=== PATIENT | female | born 1945 | race Caucasian/White ===

== ENCOUNTER 2016-03-28 09:35 | Emergency (ER) | payer OTHER ==
[~2016-03-28 09:35] MED LIST: ABILIFY5 M1 PO; ALENDRONATE SOD70 M1 PO; ALENDRONATE SOD70 M2 PO; ASPIRIN CHILDRE81 MG PO; ATIVAN 0.5MG T0.5 MG PO; ATIVAN0.5 M1 PO; ATIVAN1 M1 PO; BENZONATATE100 M1 PO; CYMBALTA 30 MG30 MG PO; CYMBALTA60 MG PO; DILAUDID8 MG PO; DOLOPHINE10 MG PO; DULOXETINE HCL60 MG PO; DULOXETINE60 MG PO; FENTANYL TR50 MCG/HR TOP; GABAPENTIN300 MG PO; GABAPENTIN400 M2 PO; GUAIFENESIN ER600 MG PO; HALOPERIDOL1 M1 PO; IBUPROFEN600 M1 PO; INDERAL 20 MG PO; INDERAL LA 60MG60 MG PO; LIDODERM 5% PAT1 PAT EXT; LISINOPRIL10 MG PO; LORAZEPAM1 MG PO; LORAZEPAM2 MG PO; MELATONIN5 M6 PO; MOBIC7.5 M1 PO; NAPROXEN500 MG PO; NOVAPLUS FE75 MCG/HR TOP; OXYCODONE HYDRO15 MG PO; PERCOCET 325 MG1 TA2 PO; PERCOCET 5-3251 EACH PO; PREMARIN0.3 M1 PO; PRINIVIL 5MG5 MG PO; PROPRANOLOL HCL20 M1 PO; PROPRANOLOL HCL20 MG PO; PROPRANOLOL HYD80 MG PO; ROXICODONE30 MG PO; TEGRETOL200 M1 PO; TRAZODONE HCL50 M1 PO; TRAZODONE100 MG PO; TYLENOL500 MG PO; ULTRAM50 M1 PO; VITAMIN B121000 MCG PO; VITAMIN D1000 IU PO; XANAX1 MG PO; ZYPREXA2.5 MG PO
[2016-03-28 10:18] LABS: ABSOLUTE BASOPHIL COUNT 0 /CUMM (0.0-0.2); ABSOLUTE EOSINOPHIL COUNT 0.2 /CUMM (0.0-0.7); ABSOLUTE GRANULOCYTE CT 2.1 /CUMM (1.4-6.5); ABSOLUTE LYMPH COUNT 1.6 /CUMM (1.2-3.4); ABSOLUTE MONOCYTE COUNT 0.6 /CUMM (0.10-0.60); BASOPHIL % 0.5 % (0.0-2.0); EOSINOPHIL % 4.4 % (0-5); GRANULOCYTE % 46.8 % (42.2-75.2); MEAN CORPUSCULAR HGB 32.8 PG (27.0-31.0); MEAN CORPUSCULAR HGB CONC 33.8 G/DL (33.0-37.0); MEAN CORPUSCULAR VOLUME 97.1 FL (81.0-99.0); MEAN PLATELET VOLUME 7.9 FL (7.4-10.4); PLATELET COUNT 199 /CUMM (130-400); RBC DISTRIBUTION WIDTH 13.6 % (11.5-14.5); RED BLOOD CELL CT 4.32 /CUMM (4.20-5.40); WHITE BLOOD CELL COUNT 4.6 /CUMM (4.8-10.8)
[2016-03-28] MEDS ORDERED: ATIVAN1 M1 PO (13:49)
--- NOTE | 2016-03-28 13:52 | ED PSYCHIATRIC COMPLAINT ---
History of Present Illness General Chief Complaint: Psychiatric Related Complaint Stated Complaint: BIBA, ANXIETY INGESTED SINGULAR, +SI, ON PEER Source: patient, old records Exam Limitations: poor historian, SEVERE ANXIETY Vital Signs & Intake/Output Vital Signs & Intake/Output Vital Signs Date Time Temp Pulse Resp B/P Pulse O2 O2 Flow FiO2 Ox Delivery Rate 03/28 1255 97.9 60 18 120/70 96 Room Air 03/28 1154 98.1 61 18 125/74 95 03/28 1101 Room Air Room Air 03/28 0944 97.2 82 22 123/71 97 Room Air Allergies Coded Allergies: codeine (Mild, GI UPSET 01/27/16) Reconcile Medications Alendronate Sodium 70 MG TABLET 1 TAB PO QWED BONES (Reported) in the morning, at least 30 minutes before the first food, beverage, or medication of the day Aripiprazole (Abilify) 5 MG TABLET 1 TAB PO QPM mental health Carbamazepine (Tegretol) 200 MG TABLET 1 TAB PO QPM mental health Cholecalciferol (Vitamin D3) 1,000 UNIT TABLET 2 TAB PO DAILY HEALTH SUPPLEMENT Duloxetine HCl 60 MG CAPSULE.DR 1 CAP PO DAILY MENTAL HEALTH (Reported) Estrogens, Conjugated (Premarin) 0.3 MG TABLET 1 TAB PO DAILY hormon maintainance (Reported) Gabapentin 300 MG CAPSULE 1 CAP PO BID NEUROPATHY (Reported) Gabapentin 400 MG CAPSULE 1 CAP PO QPM mental health Ibuprofen 600 MG TABLET 1 TAB PO Q6PRN PRN pain with food Lorazepam (Ativan) 1 MG TABLET 1 TAB PO DAILY PRN anxiety Lorazepam (Ativan) 0.5 MG TABLET 0.5 MG PO TID anxiety Melatonin 5 MG TAB.SUBL 5 MG PO AT BEDTIME sleep Meloxicam (Mobic) 7.5 MG TABLET 1 TAB PO DAILY PRN pain Naproxen 500 MG TABLET 1 TAB PO BID PAIN (Reported) Oxycodone HCl/Acetaminophen (Percocet 5-325 MG Tablet) 5 MG-325 MG TABLET 1 TAB PO Q4-6 PRN PAIN Propranolol HCl 20 MG TABLET 1 TAB PO QPM mental health Propranolol HCl 20 MG TABLET 20 MG PO BID blood pressure/tremors Tramadol HCl (Ultram) 50 MG TABLET 1-2 TAB PO Q6PRN PRN severe pain TRAZODONE HCL (Trazodone HCl) 100 MG TABLET 1 TAB PO QPM PRN SLEEP (Reported) Trazodone HCl 50 MG TABLET 1 TAB PO QPM sleep Triage Note: PER EMS AND POLICE PT ON PEC TOOK SINGULAR AND PROPANOLOL CALLED 911 2 HRS AGO + SI, PT TO TRIAGE CRYING STATES A LITTLE SI Triage Nurses Notes Reviewed? yes HPI: Patient presents for evaluation of severe and worsening anxiety that has been present for an unclear time period. Patient states she has missed the last 3 appointments at her IOP for other medical problems and was ultimately referred over to care. She has been unable to follow-up at [facility]. She has now run out of her psychiatric medications and is beginning to feel "off". She states that she's been lying down a lot and feels confused often. He states that today she took 2 Singulair tablets and other medications but does not know what they are. She spoke to a crisis hotline and was instructed to be evaluated in the emergency department. Past History Travel History Traveled to [place] past 21 day No Medical History Any Pertinent Medical History? 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 BROTHER, ; Cause: Hepatitis. Relation not specified for: Family hx-stroke FH: heart disease Hx Contributory? No Review of Systems Review of Systems Constitutional: Reports: no symptoms. EENTM: Reports: no symptoms. Respiratory: Reports: no symptoms. Cardiovascular: Reports: no symptoms. GI: Reports: no symptoms. Genitourinary: Reports: no symptoms. Musculoskeletal: Reports: no symptoms. Skin: Reports: no symptoms. Neurological/Psychological: Reports: see HPI. Hematologic/Endocrine: Reports: no symptoms. Immunologic/Allergic: Reports: no symptoms. All Other Systems: Reviewed and Negative Physical Exam Physical Exam General Appearance: SEE BELOW Neurological/Psychiatric: see below Comments: General: Alert, calm, cooperative, follows commands Head: Normocephalic, atraumatic Eyes: Normal inspection, no nystagmus, EOMI Ears: Normal inspection Nose: Normal inspection Throat: Moist mucosa Neck: Supple, no goiter Heart: Regular rate and rhythm, no murmurs rubs or gallops Lungs: Clear to auscultation bilaterally with good air entry Abdomen: Soft nontender nondistended, normal bowel sounds Chest: Nontender Extremities: Normal range of motion grossly, mild tremors present, no cyanosis clubbing or edema of the upper extremities Neurologic: cranial nerves II through XII grossly intact, speech clear, gait normal Psychiatric: Severely anxious and often tearful, No apparent delusions or hallucinations, no pressured speech or thought blocking SAD PERSONS Done? deferred to crisis Progress Differential Diagnosis: ANXIETY, BIPOLAR DISORDER Plan of Care: Orders Procedure Date/time Status Regular Diet 03/28 D Active Continuous Observation Monitor 03/28 1251 Active ED CRISIS PSYCH CONSULT 03/28 1119 Active URINE DRUGS OF ABUSE 03/28 1035 Complete ACETOMINOPHEN 03/28 0949 Complete SALICYLATE 03/28 0949 Complete ETHANOL 03/28 0949 Complete COMPREHENSIVE METABOLIC PANEL 03/28 0949 Complete CBC WITHOUT DIFFERENTIAL 03/28 0949 Complete Laboratory Tests 03/28/16 1059: Urine Opiates Screen < 100.00, Methadone Screen 42, Barbiturate Screen < 60, Ur Phencyclidine Scrn < 6.00, Amphetamines Screen < 100, U Benzodiazepines Scrn 111 , Urine Cocaine Screen < 50, Urine Cannabis Screen > 80.00 H 03/28/16 0955: Anion Gap 13, Estimated GFR > 60, BUN/Creatinine Ratio 15.7, Glucose 110 H, Calcium 9.2, Total Bilirubin 0.6, AST 104 H, ALT 76 H, Alkaline Phosphatase 93 , Total Protein 7.4, Albumin 3.4 L, Globulin 4.0, Albumin/Globulin Ratio 0.9 L , CBC w Diff NO MAN DIFF REQ, RBC 4.32, MCV 97.1, MCH 32.8 H, RDW 13.6, MPV 7.9 , Gran % 46.8, Lymphocytes % 35.9, Monocytes % 12.4 H, Eosinophils % 4.4, Basophils % 0.5, Absolute Granulocytes 2.1, Absolute Lymphocytes 1.6, Absolute Monocytes 0.6, Absolute Eosinophils 0.2, Absolute Basophils 0, PUBS MCHC 33.8, Salicylates < 1.0, Acetaminophen < 10.0 L, Serum Alcohol < 10.0 Comments: 03/28/2016 1:48:02 PM patient has been evaluated by crisis and considered stable for outpatient management. Departure Departure Disposition: HOME OR SELF CARE Condition: Stable Clinical Impression Primary Impression: Anxiety Referrals: PATIENT HAS NO PRIMARY CARE DR (PCP/Family) Additional Instructions: Follow-up with your outpatient services appointment as scheduled. Ativan as prescribed for anxiety or trouble sleeping. Follow-up with your primary care doctor as scheduled on Tuesday. Return if any concerns or sudden worsening. Departure Forms: Customer Survey General Discharge Information Prescriptions: Current Visit Scripts Lorazepam (Ativan) 1 TAB PO TID PRN anxiety #15 TAB
[2016-03-28 14:07] VITALS: BP 146/58
--- NOTE | 2016-03-28 14:08 | ED PSYCH CRISIS CONSULTATION ---
See Addendum Crisis Consult Basic Assessment Date of Consult: 03/28/16 Responsible Person/Accompanied By: Self Insurance Authorization: Insurance #1: Insurance name: [employer] Phone number: Policy number: [id number] Group number: Authorization number: ED Provider: Patient's ED Provider: MARY MARQUES MD Primary Care Physician: Patient's PCP: PATIENT HAS NO PRIMARY CARE DR PCP's Phone Number: Current Psychiatrist: Evelyn Cotton MD Chief Complaint: Psychiatric Related Complaint Anxiety Patient's Quote: "I haven't slept in days, I need help" Present Illness: Pt is a 70 year old single female who was brought by ambulance to ED, after this test director contacted 911 while pt was talking to clinician on the phone and sent the police to the pt's home. Pt called [facility] and got the [place] [employer] department who transferrd the pt to the Crisis phone. While on the phone the pt spoke to this clinician stating she was feeling "scared and anxious" because she hadn't slept in 3 days. Further, pt reported she took medications and she did not remember what she took. "I'm not sure what I took, I'm too anxious". Upon interviewing the pt in the ED, she was alert, very tearful, crying uncontrollably and yelling "I should have stayed home nobody is doing anything". "I just need to sleep" Pt was extremely agitated and verbally aggressive. Pt went on to say, she took Trazodone last night one 50mg pill at 11:30, then one 50mg pill at 12:30 and another 50mg pill at 4:30am. "It's not working, it is having the opposite effect on me, I'm not sleeping". Clinician spoke to Dr. Marques to inquire about what might be given to the pt to help her to calm done and be able to engage in a conversation and get through the interview (pt was given Ativan 1mg). Line Director interviewed the pt about an hour later and she was calm and cooperative. She stated she attended [facility] about a month ago and she missed a couple of days and was discharged from [facility]. "I would like to go back there and have interaction with people, I'm too isolated". Pt denied feeling suicidal at this time. "Yes I feel better and I want to go home and sleep". Pt then said "I feel better, I want to go home and sleep". "I just need a medication that will make me sleep". Clinician consulted with Dr. Marques & Dr. Cotton and the recommendation were as follows: Dr. Marques will give the pt a prescription for Ativan with a 5 day supply. Pt has an appointment with her PCP on 03/30/16 at 9:40am and pt was given an IOP appointment on 03/31/16 at 10:15am. Patient's Address: [address] [place] [address] Other Phone Number: Who Do You Live With? Patient/Self Family/Informants Interviewed: no family/collateral ID'd Allergies - Coded Allergies: codeine (Mild, GI UPSET 01/27/16) Current Medications - Scheduled Medications Alendronate Sodium 70 MG TABLET 1 TAB PO QWED BONES (Reported) Entered as Reported by IVIS HILL on 07/15/15 2020 Aripiprazole (Abilify) 5 MG TABLET 1 TAB PO QPM mental health #1 TAB Prescribed by MARY MARQUES MD on 02/14/16 Carbamazepine (Tegretol) 200 MG TABLET 1 TAB PO QPM mental health #1 TAB Prescribed by MARY MARQUES MD on 02/14/16 Cholecalciferol (Vitamin D3) 1,000 UNIT TABLET 2 TAB PO DAILY HEALTH SUPPLEMENT #90 Duloxetine HCl 60 MG CAPSULE. 1 CAP PO DAILY MENTAL HEALTH #14 (Reported) Entered as Reported by IVIS HILL on 07/15/152021 Estrogens, Conjugated (Premarin) 0.3 MG TABLET 1 TAB PO DAILY hormon maintainance #30 (Reported) Entered as Reported by ANGELICA PEÑALOZA on 07/02/15 0755 Gabapentin 300 MG CAPSULE 1 CAP PO BID NEUROPATHY #60 (Reported) Entered as Reported by IVIS HILL on 03/02/14 1211 Gabapentin 400 MG CAPSULE 1 CAP PO QPM mental health #1 CAP Prescribed by MARY MARQUES MD on 02/14/16 Lorazepam (Ativan) 0.5 MG TABLET 0.5 MG PO TID anxiety 28 Days Prescribed by ANGELICA PEÑALOZA on 07/03/15 Melatonin 5 MG TAB.SUBL 5 MG PO AT BEDTIME sleep 7 Days Prescribed by ANGELICA PEÑALOZA on 07/03/15 Naproxen 500 MG TABLET 1 TAB PO BID PAIN #60 (Reported) Entered as Reported by IVIS HILL on 03/02/14 1209 Propranolol HCl 20 MG TABLET 1 TAB PO QPM mental health #1 TAB Prescribed by MARY MARQUES MD on 02/14/16 Propranolol HCl 20 MG TABLET 20 MG PO BID blood pressure/tremors 28 Days Prescribed by ANGELICA PEÑALOZA on 07/03/15 Trazodone HCl 50 MG TABLET 1 TAB PO QPM sleep #1 TAB Prescribed by MARY MARQUES MD on 02/14/16 Scheduled PRN Medications Ibuprofen 600 MG TABLET 1 TAB PO Q6PRN PRN pain #50 TAB Prescribed by SHAKA TORRES MD on 01/09/16 Lorazepam (Ativan) 1 MG TABLET 1 TAB PO TID PRN anxiety #15 TAB Prescribed by MARY MARQUES MD on 03/28/16 Lorazepam (Ativan) 1 MG TABLET 1 TAB PO DAILY PRN anxiety #6 TAB Prescribed by MARY NAGY DO on 03/06/16 Meloxicam (Mobic) 7.5 MG TABLET 1 TAB PO DAILY PRN pain #10 TAB Prescribed by MARY NAGY DO on 03/06/16 Oxycodone HCl/Acetaminophen (Percocet 5-325 MG Tablet) 5 MG-325 MG TABLET 1 TAB PO Q4-6 PRN PAIN #2 TAB Prescribed by NAFISA ROUSSEAU MD on 01/24/16 Tramadol HCl (Ultram) 50 MG TABLET 1-2 TAB PO Q6PRN PRN severe pain #30 TAB Prescribed by SHAKA TORRES MD on 01/09/16 TRAZODONE HCL (Trazodone HCl) 100 MG TABLET 1 TAB PO QPM PRN SLEEP #30 ( Reported) Entered as Reported by IVIS HILL on 03/02/14 1209 Laboratory Results: Laboratory Tests 03/28/16 1059: Urine Opiates Screen < 100.00, Methadone Screen 42, Barbiturate Screen < 60, Ur Phencyclidine Scrn < 6.00, Amphetamines Screen < 100, U Benzodiazepines Scrn 111 , Urine Cocaine Screen < 50, Urine Cannabis Screen > 80.00 H 03/28/16 0955: Anion Gap 13, Estimated GFR > 60, BUN/Creatinine Ratio 15.7, Glucose 110 H, Calcium 9.2, Total Bilirubin 0.6, AST 104 H, ALT 76 H, Alkaline Phosphatase 93 , Total Protein 7.4, Albumin 3.4 L, Globulin 4.0, Albumin/Globulin Ratio 0.9 L , CBC w Diff NO MAN DIFF REQ, RBC 4.32, MCV 97.1, MCH 32.8 H, RDW 13.6, MPV 7.9 , Gran % 46.8, Lymphocytes % 35.9, Monocytes % 12.4 H, Eosinophils % 4.4, Basophils % 0.5, Absolute Granulocytes 2.1, Absolute Lymphocytes 1.6, Absolute Monocytes 0.6, Absolute Eosinophils 0.2, Absolute Basophils 0, PUBS MCHC 33.8, Salicylates < 1.0, Acetaminophen < 10.0 L, Serum Alcohol < 10.0 Past History Past Medical History Neurological: NONE EENT: NONE Cardiovascular: CAD, hypertension, hyperlipidemia, myocardial infarction ( possible old M.I.(on EKG)) Respiratory: NONE Gastrointestinal: NONE Hepatic: HEP C--hasn't been rx'd Renal: NONE Musculoskeletal: chronic back pain Psychiatric: anxiety, bipolar disease (R/O bipolar spectrum disorder), chronic pain disorder (with prominent mixed/irritable), depression (symptoms and rage outbursts), SUICIDAL IDEATION Endocrine: THYROID,PARATHYROID SURGE Blood Disorders: NONE Cancer(s): NONE 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 Physical Limitations (Interventions): Back pain, uses cane/ walker Psychiatric Treatment History Psych Treatment Psychiatric Treatment Yes Inpatient Treatment Yes Outpatient Treatment No Location of Treatment [facility] Reason for Treatment Depression Dates of Treatment July & December 2015 Response to Treatment Pt referred to [facility] but was discharged early. Diagnosis by History: Depression, Anxiety Substance Use/Abuse History Drug Use/Abuse Substances Used/Abused Yes Substance Used/Abused Marijuana First Use Unknown Last Used 03/27/16 How much used/taken unknown How often Ocassionally For how long unknown Route of use smoke Substance Abuse Treatment Substance Abuse Treatment Past Substance Abuse [place] No Inpatient Treatment No Outpatient Treatment Yes Location of Treatment [place] Reason for Treatment Dual Diagnosis Dates of Treatment 01/06/16 Response to Treatment Pt discharge from [facility] for poor attendance. Current Mental Status Mental Status Orientation: Person, Place, Situation Affect: Anxious, Angry, Depressed, Sad Speech: Hyper-verbal Neuro-vegetative: Concentration Poor, Energy Decreased, Sleep Disturbance (No sleep 3 days) Appearance Appearance- Dress/Hygiene: Pt not groomed, disheveled appearance Behaviors Thought Process: Disorganized Thought Content: Somatic Memory: Impaired Insight: Poor SI/HI Risk Assessment Past Suicidal Ideation/Attempts Yes Current Suicidal Ideation/Att No Past Homicidal Ideation/Att: No Current Homicidal Ideation/Attempts No Degree of Intent: None Danger To: N/A Gravely Disabled: Poor Judgment Risk Factors: age (under 24/over 65), high anxiety/distress, history of suicide atmpts, SA/MH hospitalized, substance abuse, poor impulse control, lives alone, limited support Lethality Ratin (mild) PTSD Checklist PTSD Done? patient declined ED Management Sitter: Yes Restraints: No DSM5/PS Stressors/Medical Prob Diagnosis' (DSM 5, Stressors, Medical): F32.9 Depressive Disorder Unspecified, F15.20 Cannibis Use Disorder Moderate, Opioid Use Disorder; in sustained full remission, Medical Condition Hypertension , Hyperlipidemia, Chronic back pain Current GAF: 35 Departure Disposition Psych Medical Clearance Date: 03/28/16 Medically Cleared at: 1119 Time Started: 1141 Time Ended: 1230 Psychiatrist Consulted: Evelyn Cotton MD Date Disposition Established: 03/28/16 Time Disposition Established: 1240 Plan for Disposition - Modality: IOP Facility: [facility] Follow-up Appt Date: 03/31/16 Follow-Up Appt Time: 1015 Contact: [facility] Telephone: [phone] Rationale for Disposition: Pt denied SI/HI and no evidence of psychosis Pt became very calm after she was treated with Ativan 1mg in the ED. Pt was given a script for PRN Ativan with follow up appointment for IOP on 03/31/16 at 10:15am and PCP appointment on 03/30/16 at 9:40am. Referrals PATIENT HAS NO PRIMARY CARE DR (PCP/Family)
== END 2016-03-28 14:24 ==
LOC: ERH 09:35
PROVIDERS: Emergency Medicine
DX: F41.9 Anxiety disorder, unspecified (principal)
CPT/HCPCS: 80307; G0480

== ENCOUNTER 2016-04-11 07:20 | Emergency (ER) | payer OTHER ==
[~2016-04-11] VITALS: Ht 157.5 cm; Wt 79.4 kg
--- NOTE | 2016-04-11 08:47 | ED PSYCHIATRIC COMPLAINT ---
History of Present Illness General Chief Complaint: Psychiatric Related Complaint Stated Complaint: ANXIETY Source: patient, old records, EMS Exam Limitations: no limitations Vital Signs & Intake/Output Vital Signs & Intake/Output Vital Signs Date Time Temp Pulse Resp B/P Pulse O2 O2 Flow FiO2 Ox Delivery Rate 04/11 0809 98 Room Air 04/11 0727 96.9 84 18 142/92 95 Room Air Allergies Coded Allergies: codeine (Mild, GI UPSET 01/27/16) Reconcile Medications Alendronate Sodium 70 MG TABLET 1 TAB PO QWED BONES (Reported) in the morning, at least 30 minutes before the first food, beverage, or medication of the day Aripiprazole (Abilify) 5 MG TABLET 1 TAB PO QPM mental health Carbamazepine (Tegretol) 200 MG TABLET 1 TAB PO QPM mental health Cholecalciferol (Vitamin D3) 1,000 UNIT TABLET 2 TAB PO DAILY HEALTH SUPPLEMENT Duloxetine HCl 60 MG CAPSULE.DR 1 CAP PO DAILY MENTAL HEALTH (Reported) Estrogens, Conjugated (Premarin) 0.3 MG TABLET 1 TAB PO DAILY hormon maintainance (Reported) Gabapentin 300 MG CAPSULE 1 CAP PO BID NEUROPATHY (Reported) Gabapentin 400 MG CAPSULE 1 CAP PO QPM mental health Ibuprofen 600 MG TABLET 1 TAB PO Q6PRN PRN pain with food Lorazepam (Ativan) 1 MG TABLET 1 TAB PO TID PRN anxiety Lorazepam (Ativan) 1 MG TABLET 1 TAB PO DAILY PRN anxiety Lorazepam (Ativan) 0.5 MG TABLET 0.5 MG PO TID anxiety Melatonin 5 MG TAB.SUBL 5 MG PO AT BEDTIME sleep Meloxicam (Mobic) 7.5 MG TABLET 1 TAB PO DAILY PRN pain Naproxen 500 MG TABLET 1 TAB PO BID PAIN (Reported) Oxycodone HCl/Acetaminophen (Percocet 5-325 MG Tablet) 5 MG-325 MG TABLET 1 TAB PO Q4-6 PRN PAIN Propranolol HCl 20 MG TABLET 1 TAB PO QPM mental health Propranolol HCl 20 MG TABLET 20 MG PO BID blood pressure/tremors Tramadol HCl (Ultram) 50 MG TABLET 1-2 TAB PO Q6PRN PRN severe pain TRAZODONE HCL (Trazodone HCl) 100 MG TABLET 1 TAB PO QPM PRN SLEEP (Reported) Trazodone HCl 50 MG TABLET 1 TAB PO QPM sleep Triage Note: 70 YO FEMALE BIBA FROM HOME. PT STATES SHE HAS A HISTORY OF DEPRESSION AND ANXIETY AND THEY RECENTLY CHANGED SOME OF HER MEDICATIONS AND SHE HASNT BEEN ABLE TO SLEEP OR EAT. PT STATES SHE WAS PERSCRIPED LORAZAPAM BUT HER DR ONLY GAVE HER 6 PILLS AND IT WAS WORKING BUT SHE HAS NO MORE. Triage Nurses Notes Reviewed? yes Onset: Morning Duration: day(s):, continues in ED, waxing and waning Timing: recent history Severity: severe Associated Symptoms: anxiety, impaired concentration, insomnia LMP (ages 10-50): post menopausal : No Patient currently breastfeeds: No HPI: Several days prior to admission patient complains of increasing anxiety. Yesterday anxiety became worse when her aid left associated with insomnia anorexia and fatigue. She denies fever chills nausea vomiting diarrhea abdominal pain chest pain shortness breath headache dysuria rash bleeding suicidal ideation homicidal ideation hallucination Past History Travel History Traveled to [place] past 21 day No Medical History Any Pertinent Medical History? 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 BROTHER, ; Cause: Hepatitis. Relation not specified for: Family hx-stroke FH: heart disease Hx Contributory? No Review of Systems Review of Systems Constitutional: Reports: no symptoms. EENTM: Reports: no symptoms. Respiratory: Reports: no symptoms. Cardiovascular: Reports: no symptoms. GI: Reports: no symptoms. Genitourinary: Reports: no symptoms. Musculoskeletal: Reports: no symptoms. Skin: Reports: no symptoms. Neurological/Psychological: Reports: see HPI, anxiety, confusion. Hematologic/Endocrine: Reports: no symptoms. Immunologic/Allergic: Reports: no symptoms. All Other Systems: Reviewed and Negative Physical Exam Physical Exam General Appearance: well developed/nourished, alert, awake, anxious, moderate distress Head: atraumatic, normal appearance Eyes: Bilateral: PERRL, EOMI. Ears, Nose, Throat: normal pharynx, normal ENT inspection, hearing grossly normal Neck: normal inspection, supple Respiratory: normal breath sounds Cardiovascular: regular rate/rhythm Gastrointestinal: soft, non-tender Extremities: normal range of motion Neurological/Psychiatric: no motor/sensory deficits, awake, agitated, alert, anxious, conference concierge II-XII nml as tested, oriented x 3 Appearance/Memory/Insight: disheveled, impaired insight Behavoir/Eye Contact/Speech: cooperative, normal speech Thoughts/Hallucinations: no apparent hallucination Skin: intact, normal color, warm/dry SAD PERSONS Done? patient not suicidal Progress Differential Diagnosis: drug intoxication, drug overdose, drug withdrawal, electrolyte abnormality, hypoglycemia Plan of Care: Orders Procedure Date/time Status URINE DRUG SCREEN FOR ER ONLY 04/11 744 Complete Current Medications Sig/Lena Start time Last Medication Dose Stop Time Status Admin Aripiprazole 5 MG ONCE ONE 04/11 914 AC (Abilify) 04/11 915 Carbamazepine 200 MG ONCE ONE 04/11 914 AC (Tegretol) 04/11 915 Laboratory Tests 04/11/16 0745: Urine Opiates Screen < 100.00, Methadone Screen < 40, Barbiturate Screen < 60, Ur Phencyclidine Scrn < 6.00, Amphetamines Screen < 100, U Benzodiazepines Scrn < 85, Urine Cocaine Screen < 50, Urine Cannabis Screen 78.90 H Comments: Patient declines restarting abilify and tegretol. Requests more ativan. Declines crisis evaluation at this time. Prefers to go home and try to relax. Departure Departure Time of Disposition: 905 Disposition: HOME OR SELF CARE Condition: Stable Clinical Impression Primary Impression: Generalized anxiety disorder Referrals: PATIENT HAS NO PRIMARY CARE DR (PCP/Family) Departure Forms: General Discharge Information
[2016-04-11 09:19] VITALS: BP 132/88
== END 2016-04-11 09:20 ==
LOC: ERH 07:20
DX: F41.1 Generalized anxiety disorder (principal)
CPT/HCPCS: 80307

== ENCOUNTER 2017-08-05 10:43 | Emergency (ER) | payer OTHER ==
[~2017-08-05] VITALS: Ht 157.5 cm; Wt 68.0 kg
[~2017-08-05 10:43] MED LIST changes: +AMLODIPINE BESYL5 M1 PO; +BUSPIRONE HCL10 M1 PO; +BUSPIRONE HCL7.5 M1 PO; +DULOXETINE HCL30 MG PO; +HYDROXYZINE HCL25 M2 PO; +HYDROXYZINE HCL50 M1 PO; +OMEPRAZOLE40 M1 PO; +OXYCODONE HCL10 M2 PO; +TRAMADOL HCL50 M1 PO; +TRAZODONE HCL100 M1 PO; +ZOFRAN ODT4 M1 SL
[2017-08-05 10:51] VITALS: BP 154/94
[2017-08-05] MEDS ORDERED: PERCOCET 5-3251 EACH PO (11:19)
[2017-08-05] MEDS ORDERED: CYMBALTA30 M1 PO (11:19)
--- NOTE | 2017-08-05 11:20 | ED GENERAL ADULT ---
History of Present Illness General Chief Complaint: General Adult Stated Complaint: WEAKNESS/OUT OF MEDS Source: patient, old records Exam Limitations: no limitations Vital Signs & Intake/Output Vital Signs & Intake/Output Vital Signs Date Time Temp Pulse Resp B/P B/P Pulse O2 O2 Flow FiO2 Mean Ox Delivery Rate 08/05 1128 Room Air Room Air 08/05 1051 98.4 106 18 154/94 98 Room Air Allergies Coded Allergies: No Known Drug Allergies (UNKNOWN 11/08/16) codeine (Mild, GI UPSET 01/27/16) Reconcile Medications Alendronate Sodium 70 MG TABLET 1 TAB PO QWED BONES (Reported) in the morning, at least 30 minutes before the first food, beverage, or medication of the day Amlodipine Besylate 5 MG TABLET 5 MG PO DAILY blood pressure management Buspirone HCl 10 MG TABLET 10 MG PO 0800,1400,2200 anxiety Duloxetine HCl 30 MG CAPSULE.DR 2 CAP PO DAILY UNKNOWN (Reported) Duloxetine Hydrochloride (Cymbalta) 30 MG CAPSULE.DR 3 CAP PO DAILY DEPRESSION Omeprazole 40 MG CAPSULE.DR 1 CAP PO DAILY GI (Reported) Oxycodone HCl/Acetaminophen (Percocet 5-325 MG Tablet) 5 MG-325 MG TABLET 1-2 TAB PO Q6P PRN PAIN Propranolol HCl 20 MG TABLET 20 MG PO 0800,1400,2200 tremors/blood pressure Trazodone HCl 100 MG TABLET 100 MG PO AT BEDTIME sleep induction Triage Note: 71 YO FEMALE TO TRIAGE BY AMBULANCE FOR MED REFILL OF CYMBALTA. REPORTS SHE HAS BEEN OUT FOR 5 DAYS, REPORTS SHE IS IN THE PROCESS OF GETTING A NEW DR. ALSO C/O PAIN TO GROIN. Triage Nurses Notes Reviewed? yes HPI: Patient ran out of her Cymbalta 4 days ago. Patient denies any suicidal or homicidal ideations. Patient's therapist is attempting to get her into see a new doctor. Patient is also in between pain management doctors. Patient has diffuse achy body pain. This is not new for her. She states that the pain is currently 8 out of 10. Patient denies any hallucinations. There are no aggravating or mitigating factors to the pain. Past History Travel History Traveled to [place] past 21 day No Medical History Any Pertinent Medical History? see below for history Neurological: CVA (with L-sided paraparesis), delerium (in 2005--too much opioid rx), dizziness (in past on Tegretol, 3-400mg), R/O shaking/tremulousness on idiopathic basis EENT: NONE Cardiovascular: CAD, hypertension, hyperlipidemia, myocardial infarction ( possible old M.I.(on EKG)) Respiratory: NONE, hx of aspirations during drug excess and/or OD Gastrointestinal: NONE Renal: NONE Musculoskeletal: chronic back pain Psychiatric: anxiety, bipolar disease (R/O bipolar spectrum disorder), depression, IV drug abuse (remote hx heroin abuse), opioid dependence, SUICIDAL IDEATION benzo. 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 BROTHER, ; Cause: Hepatitis. Relation not specified for: Family hx-stroke FH: heart disease Hx Contributory? No Review of Systems Review of Systems Constitutional: Reports: no symptoms. EENTM: Reports: no symptoms. Respiratory: Reports: no symptoms. Cardiovascular: Reports: no symptoms. GI: Reports: no symptoms. Genitourinary: Reports: no symptoms. Musculoskeletal: Reports: see HPI. Skin: Reports: no symptoms. Neurological/Psychological: Reports: see HPI, depressed. Hematologic/Endocrine: Reports: no symptoms. Immunologic/Allergic: Reports: no symptoms. All Other Systems: Reviewed and Negative Physical Exam Physical Exam General Appearance: well developed/nourished, alert, awake, anxious Head: atraumatic, normal appearance Eyes: Bilateral: PERRL, EOMI. Ears, Nose, Throat: normal pharynx, normal ENT inspection, hearing grossly normal Neck: normal inspection, supple, full range of motion Respiratory: normal breath sounds, chest non-tender, no respiratory distress, lungs clear Cardiovascular: regular rate/rhythm, normal peripheral pulses Gastrointestinal: normal bowel sounds, soft, non-tender, no organomegaly Extremities: normal inspection, normal capillary refill, normal range of motion, no edema Neurologic/Psych: no motor/sensory deficits, awake, alert, oriented x 3, normal mood/affect Core Measures ACS in differential dx? No CVA/TIA Diagnosis: No Sepsis Present: No Sepsis Focused Exam Completed? No Progress Differential Diagnoses I considered the following diagnoses in my evaluation of the patient: [ Medication refill] Plan of Care: Referral medicine Initial ED EKG: none Departure Departure Disposition: HOME OR SELF CARE Condition: Stable Clinical Impression Primary Impression: Depression Referrals: Unknown (PCP/Family) Additional Instructions: FOLLOW UP WITH YOUR THERAPIST RETURN IF SYMPTOMS WORSEN OR FOR ANY CONCERNS Departure Forms: Customer Survey General Discharge Information Prescriptions: Current Visit Scripts Duloxetine Hydrochloride (Cymbalta) 3 CAP PO DAILY #90 CAP Oxycodone HCl/Acetaminophen (Percocet 5-325 MG Tablet) 1-2 TAB PO Q6P PRN PAIN #16 TAB Critical Care Note Critical Care Note Critical Care Time: non-applicable
== END 2017-08-05 11:31 ==
LOC: ERH 10:43
DX: F32.9 Major depressive disorder, single episode, unspecified (principal)

== ENCOUNTER 2017-08-24 06:38 | Inpatient (IN) | payer OTHER ==
[~2017-08-24] VITALS: Ht 157.5 cm; Wt 68.0 kg
[~2017-08-24 06:38] MED LIST changes: +CYMBALTA30 M1 PO
--- NOTE | 2017-08-24 06:43 | ED PSYCHIATRIC COMPLAINT ---
See Addendum History of Present Illness General Chief Complaint: Psychiatric Related Complaint Stated Complaint: I NEED MY MEDS. Source: patient Exam Limitations: no limitations Vital Signs & Intake/Output Vital Signs & Intake/Output Vital Signs Date Time Temp Pulse Resp B/P B/P Pulse O2 O2 Flow FiO2 Mean Ox Delivery Rate 08/24 0818 97.9 98 20 130/90 97 Room Air 08/24 0649 98.7 102 22 174/95 97 Room Air Allergies Coded Allergies: No Known Drug Allergies (UNKNOWN 11/08/16) codeine (Mild, GI UPSET 01/27/16) Reconcile Medications Alendronate Sodium 70 MG TABLET 1 TAB PO QWED BONES (Reported) in the morning, at least 30 minutes before the first food, beverage, or medication of the day Amlodipine Besylate 5 MG TABLET 5 MG PO DAILY blood pressure management Buspirone HCl 10 MG TABLET 10 MG PO 0800,1400,2200 anxiety Duloxetine HCl 30 MG CAPSULE.DR 2 CAP PO DAILY UNKNOWN (Reported) Duloxetine Hydrochloride (Cymbalta) 30 MG CAPSULE.DR 3 CAP PO DAILY DEPRESSION Omeprazole 40 MG CAPSULE.DR 1 CAP PO DAILY GI (Reported) Oxycodone HCl/Acetaminophen (Percocet 5-325 MG Tablet) 5 MG-325 MG TABLET 1-2 TAB PO Q6P PRN PAIN Oxycodone HCl/Acetaminophen (Percocet 5-325 MG Tablet) 5 MG-325 MG TABLET 1 TAB PO Q6P PRN pain Propranolol HCl 20 MG TABLET 20 MG PO 0800,1400,2200 tremors/blood pressure Trazodone HCl 100 MG TABLET 100 MG PO AT BEDTIME sleep induction Trazodone HCl 50 MG TABLET 1 TAB PO QPM insomnia Triage Nurses Notes Reviewed? yes Onset: Gradual Duration: hour(s): Timing: recent history Severity: moderate Associated Symptoms: anxiety, impaired concentration, suicidal ideation HPI: 71 yo woman h/o bipolar disorder presents with increased anxiety, tearfulness, and expressing wish to . She states, "I saw my doctor yesterday and he took away all my meds.... I don't have my meds any more." She awoke this morning, stating that she was unable to breathe. She called 911. "I need my meds.... I want to ." She denies alcohol or drug use. She is otherwise well. ([facility],Tarik Salgado) Past History Travel History Traveled to [place] past 21 day No Medical History Any Pertinent Medical History? see below for history Neurological: CVA (with L-sided paraparesis), delerium (in 2006--too much opioid rx), dizziness (in past on Tegretol, 3-400mg), R/O shaking/tremulousness on idiopathic basis EENT: NONE Cardiovascular: CAD, hypertension, hyperlipidemia, myocardial infarction ( possible old M.I.(on EKG)) Respiratory: NONE, hx of aspirations during drug excess and/or OD Gastrointestinal: NONE Renal: NONE Musculoskeletal: chronic back pain Psychiatric: anxiety, bipolar disease (R/O bipolar spectrum disorder), depression, IV drug abuse (remote hx heroin abuse), opioid dependence, SUICIDAL IDEATION benzo. 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 BROTHER, ; Cause: Hepatitis. Relation not specified for: Family hx-stroke FH: heart disease Hx Contributory? No ([facility],Tarik Salgado) Review of Systems Review of Systems Constitutional: Reports: no symptoms. EENTM: Reports: no symptoms. Respiratory: Reports: no symptoms. Cardiovascular: Reports: no symptoms. GI: Reports: no symptoms. Genitourinary: Reports: no symptoms. Musculoskeletal: Reports: no symptoms. Skin: Reports: no symptoms. Neurological/Psychological: Reports: no symptoms. Hematologic/Endocrine: Reports: no symptoms. Immunologic/Allergic: Reports: no symptoms. All Other Systems: Reviewed and Negative (Tarik Nye MD) Physical Exam Physical Exam General Appearance: well developed/nourished, mild distress Head: atraumatic Eyes: Bilateral: normal appearance. Ears, Nose, Throat: normal pharynx, normal ENT inspection Neck: normal inspection, supple, full range of motion Respiratory: normal breath sounds, chest non-tender, no respiratory distress, quiet respiration, lungs clear Cardiovascular: regular rate/rhythm Gastrointestinal: normal bowel sounds Extremities: normal range of motion Neurological/Psychiatric: no motor/sensory deficits, awake, agitated, anxious, oriented x 3 Appearance/Memory/Insight: disheveled Behavoir/Eye Contact/Speech: cooperative Thoughts/Hallucinations: no apparent hallucination SAD PERSONS SAD PERSONS Response Value Age <19 or >45 years? yes 1 Depression/Hopelessness? yes 2 Rational Thinking Loss? yes 2 Single//? yes 1 Social Support? has no support 1 Total 7 SAD PERSONS Done? yes ([facility],Tarik Salgado) Progress Differential Diagnosis: drug intoxication, electrolyte abnormality, depression, bipolar Plan of Care: Orders Procedure Date/time Status Regular Diet 08/25 B Active THYROID STIMULATING HORMONE 08/24 07 Complete TROPONIN LEVEL 08/24 07 Complete EKG 08/24 0650 Active Continuous Observation Monitor 08/24 0644 Active URINE DRUG SCREEN FOR ER ONLY 08/24 0644 Complete ETHANOL 08/24 0644 Complete COMPREHENSIVE METABOLIC PANEL 08/24 0644 Complete CBC WITHOUT DIFFERENTIAL 08/24 0644 Complete ED CRISIS PSYCH CONSULT 08/24 0644 Active Current Medications Sig/Lena Start time Last Medication Dose Stop Time Status Admin Buspirone HCl 10 MG 0800,1400,2200 08/24 1400 UNVr (Buspar) Oxycodone/ See Dose Q6P PRN 08/24 0915 UNVr Acetaminophen Insts (1) (Percocet) Amlodipine Besylate 5 MG DAILY 08/24 900 UNVr (Norvasc) Lorazepam 2 MG ONCE ONE 08/24 07 CAN (Ativan) 08/24 07 Dose Instructions: (1)Oxycodone/Acetaminophen (Percocet): 1-2 TAB Laboratory Tests 08/24/17 0741: Urine Opiates Screen 111, Methadone Screen 66, Barbiturate Screen < 60, Ur Phencyclidine Scrn 6.70, Amphetamines Screen < 100, U Benzodiazepines Scrn < 85, Urine Cocaine Screen < 50, Urine Cannabis Screen > 80.00 H 08/24/17 0706: Anion Gap 14, Estimated GFR > 60, BUN/Creatinine Ratio 20.0, Glucose 130 H, Calcium 10.1, Total Bilirubin 0.7, AST 37 H, ALT 29, Alkaline Phosphatase 58, Troponin I < 0.01, Total Protein 8.2, Albumin 4.4, Globulin 3.8, Albumin/ Globulin Ratio 1.2, TSH 2.200, CBC w Diff NO MAN DIFF REQ, RBC 4.57, MCV 96.2, MCH 32.5 H, MCHC 33.8, RDW 13.6, MPV 7.7, Gran % 51.4, Lymphocytes % 35.3, Monocytes % 8.8, Eosinophils % 4.1, Basophils % 0.4, Absolute Granulocytes 4.4, Absolute Lymphocytes 3.0, Absolute Monocytes 0.7 H, Absolute Eosinophils 0.4, Absolute Basophils 0, Serum Alcohol < 10.0 08/24/17 0654: TSH Cancelled 08/24/17 0650: Troponin I Cancelled ([facility],Tarik Salgado) Departure Departure Disposition: STILL A PATIENT Condition: Stable Clinical Impression Primary Impression: Bipolar disorder Referrals: Patient Has No Primary Care Dr (PCP/Family) Departure Forms: Customer Survey General Discharge Information Comments 08/24/17, 6:52am... pt agitated and tearful upon arrival, given ativan 2mg im x1... pt to be signed out to dr. hull at 7am. ([facility],Tarik Salgado) Departure Comments 08/24/17 The patient was signed out to me by Dr. Nye at 7 AM. She is anxious and agitated. She is pending evaluation by crisis. (Reuben Hull DO)
[2017-08-24 07:18] LABS: ABSOLUTE BASOPHIL COUNT 0 /CUMM (0.0-0.2); ABSOLUTE EOSINOPHIL COUNT 0.4 /CUMM (0.0-0.7); ABSOLUTE GRANULOCYTE CT 4.4 /CUMM (1.4-6.5); ABSOLUTE MONOCYTE COUNT 0.7 /CUMM (0.10-0.60); BASOPHIL % 0.4 % (0.0-2.0); EOSINOPHIL % 4.1 % (0-5); GRANULOCYTE % 51.4 % (42.2-75.2); HEMATOCRIT 43.9 % (37-47); MEAN CORPUSCULAR HGB 32.5 PG (27.0-31.0); MEAN CORPUSCULAR HGB CONC 33.8 G/DL (33.0-37.0); MEAN CORPUSCULAR VOLUME 96.2 FL (81.0-99.0); MEAN PLATELET VOLUME 7.7 FL (7.4-10.4); PLATELET COUNT 266 /CUMM (130-400); RBC DISTRIBUTION WIDTH 13.6 % (11.5-14.5); RED BLOOD CELL CT 4.57 /CUMM (4.20-5.40); WHITE BLOOD CELL COUNT 8.5 /CUMM (4.8-10.8)
--- NOTE | 2017-08-24 11:03 | ED PSYCH CRISIS CONSULTATION ---
See Addendum Crisis Consult Basic Assessment Date of Consult: 08/24/17 Responsible Person/Accompanied By: self Insurance Authorization: Insurance #1: Insurance name: [employer] HMO Phone number: Policy number: [id number] Group number: [id number] Authorization number: ED Provider: Patient's ED Provider: Reuben Hull DO Primary Care Physician: Patient's PCP: Patient Has No Primary Care Dr PCP's Phone Number: Current Psychiatrist: none Chief Complaint: Psychiatric Related Complaint Patient's Quote: "I need you to help me" Present Illness: Patient is a 71 year old Transgender (male to female taking hormones) BIBA this morning due to not being able to breath and not having any of her medications that she typically takes. Upon arrival, EMS reported to ED staff that the pt stated she wanted to while in their care. The patient was intermittently agitated when she arrived stated she had joint pain 12/21. Pt was medicated with 2mg IM Ativan. Patient is well known to [facility]. She has been inpatient at [facility] several times with the last inpatient stay being 11/07/16-11/12/16. She has been seen 2x for refills for her medications in the ED over the last 3-4 weeks with the intent for her to follow up with her new PCP on 08/23/17. . Pt has a long history of chronic pain. Pt was a patient at the [facility] however her PCP was not able to manage her pain and was it has been reported that he did not want to make a referral to pain management. Patient decided to switch her PCP from [facility] to [facility] ([facility]). Patient reported that Dr. Fajardo from [facility] stated he could not manage her medications and took away her medications and did not give her any referrals. She believes it was not intentional that the office took her medications but thinks that its possible when the meds were taken out of the bottle that she forgot to put them back in the bottle and left them on the counter. Crisis called Dr. Fajardo office ([phone]). Dr. Fajardo was not in the office today. The elementary secretary stated that no follow up appointment was scheduled as the appointment was not completed. According to Dr. Fajardo office, pt was informed by Dr. Fajardo that he did not feel comfortable prescribing her Trazodone as she disclosed she drinks. Pt has a history of poly substance misuse but ETOH was abused per records. When pt learned that Dr. Fajardo would not prescribe her medications, pt became extremely agitated and made statements about wanting to . The office reported that they called an ambulance for her to be transported to the ED. Pt was not seen in the ED yesterday. It is unclear what happened as patient did not arrive to the ED until ~ 6am this morning. The office reports that they were putting in a psych referral and a pain management referral . Pt can seen Campos Zayas APRN through [facility] for psychiatric med management. The referral for pain management will be to Dr. Alfaro in [place]. Pt has been in multiple outpatient and IOP setting in her life. She is currently in treatment at [facility]. She is involved with the A ([facility]) and has a community health worker, Preston Mendieta. Crisis spoke to Felix this morning. We discussed options for Prachi including following up with Dr. Alfaro and Campos Zayas APRN. Today Prachi presents with SI and thoughts to . Pt is fearful that if she does not have the Trazodone to help her sleep she will go days without sleeping. In the past, she reports she went 6 days without sleeping, and slit her wrists as a suicide attempt. Pt is seeking help in order to avoid making another serious suicide attempt. Crisis completed C-SSRS- see chart. Pt's UDS was positive for marijuna and BAL was zero. Patient requires inpatient psychiatric treatment has she has expressed Suicidal Ideation and has two past attempts. Case discussed with Dr. Saenz, on-call psychiatrist. Pt will be a bed search our unit is full. Patient's Address: [address] [place] [address] Other Phone Number: Who Do You Live With? Patient/Self Family/Informants Interviewed: Preston Mendieta- [facility] Dr. Fajardo office- [facility] Allergies - Coded Allergies: No Known Drug Allergies (UNKNOWN 11/08/16) codeine (Mild, GI UPSET 01/27/16) Current Medications - Scheduled Medications Alendronate Sodium 70 MG TABLET 1 TAB PO QWED BONES (Reported) Entered as Reported by Claudia Dorantes on 07/15/152019 Amlodipine Besylate 5 MG TABLET 5 MG PO DAILY blood pressure management #1 TAB Prescribed by Ladarius Serrano MD on 11/12/16 Buspirone HCl 10 MG TABLET 10 MG PO 0800,1400,2200 anxiety #42 TAB Prescribed by Ladarius Serrano MD on 11/12/16 Duloxetine HCl 30 MG CAPSULE. 2 CAP PO DAILY UNKNOWN #60 (Reported) Entered as Reported by Claudia Dorantes on 09/16/16 1738 Duloxetine Hydrochloride (Cymbalta) 30 MG CAPSULE. 3 CAP PO DAILY DEPRESSION #90 CAP Prescribed by Mil He MD on 08/05/17 Omeprazole 40 MG CAPSULE.DR 1 CAP PO DAILY GI #30 (Reported) Entered as Reported by Claudia Dorantes on 09/16/16 1737 Propranolol HCl 20 MG TABLET 20 MG PO 0800,1400,2200 tremors/blood pressure # 42 TAB Prescribed by Ladarius Serrano MD on 11/12/16 Trazodone HCl 100 MG TABLET 100 MG PO AT BEDTIME sleep induction #14 TAB Prescribed by Ladarius Serrano MD on 11/12/16 Trazodone HCl 50 MG TABLET 1 TAB PO QPM insomnia #12 TAB Prescribed by Emeterio Phillips DO on 08/16/17 Scheduled PRN Medications Oxycodone HCl/Acetaminophen (Percocet 5-325 MG Tablet) 5 MG-325 MG TABLET 1-2 TAB PO Q6P PRN PAIN #16 TAB Prescribed by Mil He MD on 08/05/17 Oxycodone HCl/Acetaminophen (Percocet 5-325 MG Tablet) 5 MG-325 MG TABLET 1 TAB PO Q6P PRN pain #10 TAB Prescribed by Emeterio Phillips DO on 08/16/17 Laboratory Results: Laboratory Tests 08/24/17 0741: Urine Opiates Screen 111, Methadone Screen 66, Barbiturate Screen < 60, Ur Phencyclidine Scrn 6.70, Amphetamines Screen < 100, U Benzodiazepines Scrn < 85, Urine Cocaine Screen < 50, Urine Cannabis Screen > 80.00 H 08/24/17 0706: Anion Gap 14, Estimated GFR > 60, BUN/Creatinine Ratio 20.0, Glucose 130 H, Calcium 10.1, Total Bilirubin 0.7, AST 37 H, ALT 29, Alkaline Phosphatase 58, Troponin I < 0.01, Total Protein 8.2, Albumin 4.4, Globulin 3.8, Albumin/ Globulin Ratio 1.2, TSH 2.200, CBC w Diff NO MAN DIFF REQ, RBC 4.57, MCV 96.2, MCH 32.5 H, MCHC 33.8, RDW 13.6, MPV 7.7, Gran % 51.4, Lymphocytes % 35.3, Monocytes % 8.8, Eosinophils % 4.1, Basophils % 0.4, Absolute Granulocytes 4.4, Absolute Lymphocytes 3.0, Absolute Monocytes 0.7 H, Absolute Eosinophils 0.4, Absolute Basophils 0, Serum Alcohol < 10.0 08/24/17 0654: TSH Cancelled 08/24/17 0650: Troponin I Cancelled Past History Past Medical History Neurological: CVA (with L-sided paraparesis), delerium (in 2005--too much opioid rx), dizziness (in past on Tegretol, 3-400mg), R/O shaking/tremulousness on idiopathic basis EENT: NONE Cardiovascular: CAD, hypertension, hyperlipidemia, myocardial infarction ( possible old M.I.(on EKG)) Respiratory: NONE, hx of aspirations during drug excess and/or OD Gastrointestinal: NONE Renal: NONE Musculoskeletal: chronic back pain Psychiatric: anxiety, bipolar disease (R/O bipolar spectrum disorder), depression, IV drug abuse (remote hx heroin abuse), opioid dependence, SUICIDAL IDEATION benzo. 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, maintenance on female hormone (Premarin) as part of sustaining her transgender status, male- to-female characteristics Past Surgical History Surgical History: CABG Psychosocial History Strengths/Capabilities: Pt recently started therapy with [facility] and reports a positive experience Pt has community health worker through [facility] Physical Limitations (Interventions): Back pain, uses cane/ walker Psychiatric Treatment History Psych Treatment Psychiatric Treatment Yes Inpatient Treatment Yes Outpatient Treatment Yes Location of Treatment various- [facility] Reason for Treatment SI, anxiety, depression Dates of Treatment Current w/ [facility], last IP 10/2016 Response to Treatment fair- patient does well when stabalized on medications. Diagnosis by History: Depression, Anxiety Substance Use/Abuse History Drug Use/Abuse 1 Substances Used/Abused Yes Substance Used/Abused Marijuana First Use 21 Last Used 08/23/17 How much used/taken unk How often daily For how long years Route of use inhale Drug Use/Abuse 2 Substances Used/Abused Yes Substance Used/Abused Benzodiazepines (Lorezepam) First Use unk Last Used unk How much used/taken unk How often unk For how long unk Route of use oral Drug Use/Abuse 3 Substances Used/Abused Yes Substance Used/Abused Prescribed Opiates (oxycodone) First Use unk Last Used unk Substance Abuse Treatment Substance Abuse Treatment Past Substance Abuse TX Yes Inpatient Treatment Yes Outpatient Treatment No Location of Treatment [facility] Reason for Treatment detox oxycodone and lorezpema Dates of Treatment 10/2016 Response to Treatment poor Current Mental Status Mental Status Orientation: Person, Place, Situation Affect: Anxious, Labile Speech: Loud Neuro-vegetative: Appetite Decreased, Concentration Poor, Energy Decreased, Helpless, Sleep Disturbance Appearance Appearance- Dress/Hygiene: pt presents in hospital attire and appears dishelved Behaviors Thought Process: Disorganized, Irrational Thought Content: Paranoid Memory: WNL Insight: Poor SI/HI Risk Assessment Past Suicidal Ideation/Attempts Yes Current Suicidal Ideation/Att Yes Past Homicidal Ideation/Att: No Current Homicidal Ideation/Attempts No Degree of Intent: Thoughts/No Intent Danger To: Self Gravely Disabled: Lack of Insight, Poor Impulse Control Risk Factors: age (under 24/over 65), high anxiety/distress, history of suicide atmpts, SA/MH hospitalized, substance abuse, lives alone, limited support Lethality Ratin PTSD Checklist PTSD Done? 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 Centeno Date Disposition Established: 08/24/17 Time Disposition Established: 1100 Plan for Disposition - Modality: Inpatient Psychiatry Facility: TBD- Bed Search Rationale for Disposition: Pt is expressing SI. Pt has had 2 previous Suicide Attempts - 1 has an teen and 1 last year (slit writs). Pt has been seen in the ED 3 times for medical/ psych reasons in the last 3-4 weeks. Pt requires inpatient hospitalization due to on- going SI. Referrals Patient Has No Primary Care Dr (PCP/Family)
--- NOTE | 2017-08-24 12:20 | RADIOLOGY REPORT ---
EXAMINATION: XR CHEST CLINICAL INFORMATION: Chest pain. COMPARISON: CT chest without contrast 01/23/2018. TECHNIQUE: 2 views of the chest were obtained. FINDINGS: The lungs are well-expanded and clear of acute process. The heart size and pulmonary vascularity is normal. An ectatic descending thoracic aorta is noted. There are median sternotomy sutures from previous intervention. There are multiple thoracic compression fractures with evidence of cement augmentation T11 vertebra. IMPRESSION: No acute cardiopulmonary process.
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
--- NOTE | 2017-08-25 14:10 | RADIOLOGY REPORT ---
EXAMINATION: CERVICAL AND THORACIC SPINE RADIOGRAPHS CLINICAL INFORMATION: Pain. COMPARISON: Chest radiograph 08/24/2017. CT chest 01/24/2016. TECHNIQUE: 5 views of the cervical spine were obtained. 3 views of the thoracic spine were obtained. FINDINGS: Cervical spine: The cervical thoracic junction is suboptimally visualized on lateral projection. Alignment is otherwise normal. Vertebral body heights are preserved. No evidence of acute fracture. No abnormal prevertebral soft tissue swelling. There are varying degrees of neuroforaminal encroachment related to uncovertebral joint spurring and facet degenerative change at multiple levels. Soft tissues of the neck are unremarkable. Visualized lung apices are clear. Heavily calcified atherosclerotic plaque involves both carotid bifurcations. Thoracic spine: There is bone cement material within the T11 vertebral body consistent with chronic changes of a vertebral augmentation. There are chronic wedge compression deformities at multiple levels within the thoracic spine that remain essentially unchanged when compared to the chest radiograph from 08/24/2017. There is resultant accentuated kyphotic curvature of the thoracic spine. Grossly no paraspinal soft tissue mass. Visualized lungs are clear. A few healed fractures of the right ribs are noted. IMPRESSION: There are stable wedge compression deformities involving multiple vertebral segments within the thoracic spine causing accentuated thoracic kyphosis. Chronic changes of a vertebral augmentation at T11 are noted. Mild multilevel degenerative spondylosis of the cervical spine. Grossly no evidence of acute fracture.
[2017-08-25 19:23] VITALS: BP 151/92
[2017-08-26 05:38] VITALS: BP 146/85
[2017-08-26 07:59] VITALS: BP 146/78
--- NOTE | 2017-08-26 11:01 | CPS PROVIDER INIT ASMT PSYCH ---
Psychiatric Admission Production Clerk's Note Reviewed: Yes Patient Seen and Examined: Yes Identifying Information: Patient is a 71-year old Transgender (male to female taking hormones) Chief Complaint: BIBA this morning due to not being able to breath and not having any of her medications that she typically takes. Reaction to Hospitalization: The patient requested discharge today because we would not be able to help her with pain medications. The patient was admitted on a physician emergency certificate. She was informed of her option of filing for a probable cause hearing. History of Present Illness Onset of Illness: The patient has a long history of depression and has been previously in the inpatient psychiatric unit at the [facility] at least since 2016 She has been with [facility] past but reportedly she could not go there anymore because they would not take her insurance. Circumstances Leading to Admission: Upon arrival, EMS reported to ED staff that the pt. stated she wanted to while in their care. The patient was intermittently agitated when she arrived stated she had joint pain 10/10. Pt was medicated with 2mg IM Ativan. Patient is well known to [facility]. She has been inpatient at [facility] several times with the last inpatient stay being 11/07/16-11/12/16. She has been seen twice for refills for her medications in the ED over the last 3-4 weeks with the intent for her to follow up with her new PCP on 08/23/17. . Pt has a long history of chronic pain. Pt was a patient at the [facility] however her PCP was not able to manage her pain and was it has been reported that he did not want to make a referral to pain management. Patient decided to switch her PCP from [facility] to [facility] ([facility]). Patient reported that Dr. Fajardo from [facility] stated he could not manage her medications and took away her medications and did not give her any referrals. She believes it was not intentional that the office took her medications but thinks that it's possible when the meds were taken out of the bottle that she forgot to put them back in the bottle and left them on the counter. Problem(s) Justifying Need for Admission: Voicing suicidal threats. 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 The patient has been treated previously at [facility] as well as [facility] as well as [facility]. Reportedly she was diagnosed with depression but never with bipolar disorder and she also has an old diagnosis of anxiety disorder past. Looks like alcohol and substances may have been an issue. History of Suicide Attempts or [facility] clinical history significant for serious overdose in June 2015 that required an admission to an ICU Substance Abuse History: The patient has history of heroin use history of tobacco use history of marijuana use and history of sedative hypnotic use Allergies: Coded Allergies: No Known Drug Allergies (UNKNOWN 11/08/16) codeine (Mild, GI UPSET 01/27/16) Home Med List: Alendronate Sodium 70 MG TABLET 1 TAB PO QWED BONES (Reported) Entered as Reported by Claudia Dorantes on 07/15/152019 Amlodipine Besylate 5 MG TABLET 5 MG PO DAILY blood pressure management #1 TAB Prescribed by Ladarius Serrano MD on 11/12/16 Buspirone HCl 10 MG TABLET 10 MG PO 0800,1400,2200 anxiety #42 TAB Prescribed by Ladarius Serrano MD on 11/12/16 Duloxetine HCl 30 MG CAPSULE.DR 2 CAP PO DAILY UNKNOWN #60 (Reported) Entered as Reported by Claudia Dorantes on 09/16/16 1738 Duloxetine Hydrochloride (Cymbalta) 30 MG CAPSULE. 3 CAP PO DAILY DEPRESSION #90 CAP Prescribed by Mil He MD on 08/05/17 Omeprazole 40 MG CAPSULE.DR 1 CAP PO DAILY GI #30 (Reported) Entered as Reported by Claudia Dorantes on 09/16/16 1737 Propranolol HCl 20 MG TABLET 20 MG PO 0800,1400,2200 tremors/blood pressure # 42 TAB Prescribed by Ladarius Serrano MD on 11/12/16 Trazodone HCl 100 MG TABLET 100 MG PO AT BEDTIME sleep induction #14 TAB Prescribed by Ladarius Serrano MD on 11/12/16 Trazodone HCl 50 MG TABLET 1 TAB PO QPM insomnia #12 TAB Prescribed by Emeterio Phillips DO on 08/16/17 Scheduled PRN Medications Oxycodone HCl/Acetaminophen (Percocet 5-325 MG Tablet) 5 MG-325 MG TABLET 1-2 TAB PO Q6P PRN PAIN - Include any medical condition(s) that may - impact the patient's recovery/remission Past Medical History: Coronary artery disease with history of anteroseptal myocardial infarction, hypertension, hyperlipidemia, chronic back pain Past History Medical History Neurological: CVA (with L-sided paraparesis), delerium (in 2005--too much opioid rx), dizziness (in past on Tegretol, 3-400mg), R/O shaking/tremulousness on idiopathic basis EENT: NONE Cardiovascular: CAD, hypertension, hyperlipidemia, myocardial infarction ( possible old M.I.(on EKG)) Respiratory: NONE, hx of aspirations during drug excess and/or OD Gastrointestinal: NONE Hepatic: HEP C Renal: NONE Musculoskeletal: chronic back pain Psychiatric: anxiety, bipolar disease (R/O bipolar spectrum disorder), depression, IV drug abuse (remote hx heroin abuse), opioid dependence, SUICIDAL IDEATION benzo. 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 Suicides: Unknown Social History Living Situation: Reportedly lives by herself Significant Relationships (family/friends): She reports that she has nobody Education: She did some college, worked in the past as a [employer] Vocation/Occupation: Unemployed, on disability Legal: Unknown, the record indicates no legal involvements. Healthly Behaviors Screening Tobacco Screening Tobacco Use from ED Docu: Quit <30 days ago - If tobacco counseling indicated - the following topics are required. - #1 Recognizing dangerous situations. - #2 Coping Skills. - #3 Basic information about quitting. Status of Tobacco Cessation Counseling: Not Applicable Cessation Med Status Not Applicable Alcohol Screening - ETOH screen POS if BAL >=80 or Audit-C>= M4/F3 Audit-C Score from Diag Assess: 1 Blood Alcohol Level: Laboratory Tests 08/24 07 Toxicology Serum Alcohol (<10 MG/DL) < 10.0 Alcohol Use Screening Results: Neg per Audit C &/or BAL - If ETOH counseling indicated - the following topics are required. - #1 Express concern about the patient's - drinking at unhealthy levels, include informing - of national norms for moderate drinking: - men <= 14 drinks/week, max 4 drinks/occasion - women <= 7 drinks/week, max 3 drinks/occasion - #2 Providing feedback, including linking alcohol to - negative physical effects (liver injury, hypertension) - negative emotional effects (relationship problems and - depression) - negative occupational consequences (reduced work - performance) - #3 Advising the patient to abstain from alcohol or - to drink below national norms for moderate drinking - (as listed above). Status of ETOH Use Counseling: N/A B/C NO ETOH Use Metabolic Screening - Screen if on a Neuroleptic Medication - Metabolic screening should include: - Blood Pressure, BMI, Glucose or Hgb A1c, & a - Lipid profile from within the past 365 days. Metabolic Screening Not Applicable, patient not on a neuroleptic. Exam and Plan Mental Status Examination Ambulation Status: The patient uses a walker because of unsteady gait and chronic pain Appearance: Looked frail. Attitude towards examiner: Irritable and angry and demanding Psychomotor activity: Normal psychomotor activity Behavior: No abnormal or bizarre behaviors Quality of speech: Talkative, argumentative, not pressured Affect: Irritable Mood: Depressed and anxious and irritable Suicidal Ideation: Reported that if would not go to help her with her pain we might as well as in her home to . Homicidal Ideation: Denied homicidal ideation Hallucinations: Denied hallucinations Paranoid/Delusional Material: Denied feeling paranoid, there were no delusions during the interview. Difficulties with thought organization: The patient was coherent, there was no thought disorder Insight: Poor insight Judgment: Poor judgment Orientation: Alert and oriented to time place and person. Cognition: Impaired attention and concentration Memory Function: No evidence of short-term memory impairment. Estimate of intellectual functioning: Average Assets/Strengths Patient Identified Assets/Strengths: The patient was self advocating/assertive, she seems to have some resilience, as she seems intelligent Impression/Plan Impression and Plan: 71-year-old white female with a chronic pain disorder presents to the inpatient psychiatric unit because of suicidal ideation. The patient attributes her psychiatric condition to being in a chronic pain and believes that without opioids nobody can help her. She seems to have a significant substance abuse history as well as significant personality disorder and can be demanding, abrasive, and rude. - Include all active medical diagnosis that require tx DSM 5 Diagnosis(es): Unspecified Depressive Disorder Sedative-Hypnotic Use Disorder Cannabis Use Disorder Opioid Use Disorder Other specified personality disorder with mixed traits - Initial Tx Plan for Active Psych & Medical Conditions Treatment Plan: Inpatient psychiatric care with 15 minute checks for safety Increase Percocets to 2 tablets every 4 hours as needed for pain Continue duloxetine 90 mg daily Start gabapentin 600 mg 4 times daily - Factors that would help patient function - in a less restrictive setting. Factors: The patient will be discharged once she is free of thoughts of suicide or wishing for 2 consecutive days.
[2017-08-26 12:47] VITALS: BP 130/87
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
--- NOTE | 2017-08-26 14:46 | History & Physical ---
General Information and HPI MD Statement: I have seen and personally examined ESTHELA PONCE and documented this H&P. The patient is a 71 year old F who presented with a patient stated chief complaint of depression/suicidal ideation, need medication. Source of Information: patient, old records (PATIENT SEDATED) Exam Limitations: clinical condition History of Present Illness: The patient is a 71 yo transgender female (MTF) with a h/o CVA, CAD (?AK), HTN, HL chronic pain, depression who was admitted to [facility] for suicidal ideation. The patient reports having difficulty getting her medications renewed. Did get seen by Dr. Fajardo at [facility] and he stated he was unable to prescribe her pain medication. She became frustrated and mentioned killing herself. She also has a h/o IV drug abuse. At the time of my exam the patient was somewhat sedated (had previously been agitated), however cooperative and was able to answer questions. Allergies/Medications Allergies: Coded Allergies: No Known Drug Allergies (UNKNOWN 11/08/16) codeine (Mild, GI UPSET 01/27/16) Home Med list Alendronate Sodium 70 MG TABLET 1 TAB PO QWED BONES (Reported) in the morning, at least 30 minutes before the first food, beverage, or medication of the day Amlodipine Besylate 5 MG TABLET 5 MG PO DAILY blood pressure management Buspirone HCl 10 MG TABLET 10 MG PO 0800,1400,2200 anxiety Duloxetine HCl 30 MG CAPSULE.DR 2 CAP PO DAILY UNKNOWN (Reported) Duloxetine Hydrochloride (Cymbalta) 30 MG CAPSULE.DR 3 CAP PO DAILY DEPRESSION Omeprazole 40 MG CAPSULE.DR 1 CAP PO DAILY GI (Reported) Oxycodone HCl/Acetaminophen (Percocet 5-325 MG Tablet) 5 MG-325 MG TABLET 1-2 TAB PO Q6P PRN PAIN Oxycodone HCl/Acetaminophen (Percocet 5-325 MG Tablet) 5 MG-325 MG TABLET 1 TAB PO Q6P PRN pain Propranolol HCl 20 MG TABLET 20 MG PO 0800,1400,2200 tremors/blood pressure Trazodone HCl 100 MG TABLET 100 MG PO AT BEDTIME sleep induction Trazodone HCl 50 MG TABLET 1 TAB PO QPM insomnia Compliance With Home Meds: GOOD (WHEN SHE HAS THEM) Past History Travel History Traveled to [place] past 21 day No Medical History Neurological: CVA (with L-sided paraparesis), delerium (in 2006--too much opioid rx), dizziness (in past on Tegretol, 3-400mg), R/O shaking/tremulousness on idiopathic basis EENT: NONE Cardiovascular: CAD, hypertension, hyperlipidemia, myocardial infarction ( possible old M.I.(on EKG)) Respiratory: NONE, hx of aspirations during drug excess and/or OD Gastrointestinal: NONE Hepatic: HEP C Renal: NONE Musculoskeletal: chronic back pain Psychiatric: anxiety, bipolar disease (R/O bipolar spectrum disorder), depression, IV drug abuse (remote hx heroin abuse), opioid dependence, SUICIDAL IDEATION benzo. 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 BROTHER, ; Cause: Hepatitis. Relation not specified for: Family hx-stroke FH: heart disease Psychosocial History Where do you live? Home Services at Home: None Primary Language: Wolof ETOH Use: occasional use Illicit Drug Use: marijuana Functional Ability ADLs Independent: dressing, eating, toileting, bathing. Ambulation: independent IADLs Needs Assist: shopping, housework, food prep, transportation. Employment History Employment Disability Review of Systems Review of Systems Constitutional: Denies: no symptoms. EENTM: Denies: no symptoms. Cardiovascular: Denies: no symptoms. Respiratory: Denies: no symptoms. GI: Denies: no symptoms. Genitourinary: Denies: no symptoms. Musculoskeletal: Reports: back pain (CHRONIC). Skin: Denies: no symptoms. Neurological/Psychological: Reports: anxiety, depressed, emotional problems. Hematologic/Endocrine: Denies: no symptoms. Immunologic/Allergic: Denies: no symptoms. Exam & Diagnostic Data Last 24 Hrs of Vital Signs/I&O Vital Signs Date Time Temp Pulse Resp B/P B/P Pulse O2 O2 Flow FiO2 Mean Ox Delivery Rate 08/26 1247 83 130/87 08/26 0759 97.4 92 146/78 08/26 0538 104 146/85 08/25 1923 96.7 98 151/92 08/25 1810 98.6 123 18 168/90 94 Room Air Room Air 08/25 1700 98.4 108 20 162/88 95 Intake & Output 08/26 1600 08/26 0800 08/26 0000 Intake Total Output Total Balance Patient 150 lb Weight Physical Exam General Appearance Oriented X3, Cooperative (SEDATED), No Acute Distress Skin No Rashes, No Breakdown HEENT Atraumatic, PERRLA, EOMI, Mucous Membr. moist/pink (DRY MUCOSA) Neck Supple, No JVD, No thryomegaly, +2 Carotid Pulse wo Bruit, No LAD Cardiovascular Regular Rate, Normal S1, Normal S2, No Murmurs Lungs Clear to Auscultation, Normal Air Movement Abdomen Normal Bowel Sounds, Soft, No Tenderness, No Hepatospenomegaly, No Masses Neurological Exam Findings: Normal Speech, Strength at 5/5 X4 Ext, Normal Tone, Sensation Intact, Cranial Nerves 3-12 NL, Reflexes 2+ Cranial Nerves II through XII: INTACT Extremities No Clubbing, No Cyanosis, No Edema, Normal Pulses, No Tenderness/ Swelling Vascular Normal Pulses, Pulses Symmetrical Last 24 Hrs of Labs/Michel: Laboratory Tests 08/24/17 0741: Urine Opiates Screen 111, Methadone Screen 66, Barbiturate Screen < 60, Ur Phencyclidine Scrn 6.70, Amphetamines Screen < 100, U Benzodiazepines Scrn < 85, Urine Cocaine Screen < 50, Urine Cannabis Screen > 80.00 H 08/24/17 0706: Anion Gap 14, Estimated GFR > 60, BUN/Creatinine Ratio 20.0, Glucose 130 H, Calcium 10.1, Total Bilirubin 0.7, AST 37 H, ALT 29, Alkaline Phosphatase 58, Troponin I < 0.01, Total Protein 8.2, Albumin 4.4, Globulin 3.8, Albumin/ Globulin Ratio 1.2, TSH 2.200, CBC w Diff NO MAN DIFF REQ, RBC 4.57, MCV 96.2, MCH 32.5 H, MCHC 33.8, RDW 13.6, MPV 7.7, Gran % 51.4, Lymphocytes % 35.3, Monocytes % 8.8, Eosinophils % 4.1, Basophils % 0.4, Absolute Granulocytes 4.4, Absolute Lymphocytes 3.0, Absolute Monocytes 0.7 H, Absolute Eosinophils 0.4, Absolute Basophils 0, Serum Alcohol < 10.0 08/24/17 0654: TSH Cancelled 08/24/17 0650: Troponin I Cancelled Assessment/Plan Assessment: Impression/Plan: #Depression/Suicidal Ideation- patient frustrated over difficulty obtaining her medications. Has been on chronic psych and pain medications. Saw Dr. Fajardo who stated he could not prescribe. Has had various other PCP's over the years. Plan: Admitted to [facility] for evaluation of depression. When discharged will need to arrange OP follow-up for pain management, etc. Will also need PCP. #GERD- on Omeprazole. Plan: Continue Omeprazole. #Chronic Back Pain- on Percocet/Cymbalta. Plan: Percocet/Cymbalta ordered. #CAD/HTN- BP good. Unclear why she is not on usual meds (ASA, statin). Plan: Continue Amlodipine, Propranolol (for both tremors and BP)- follow BP. Will check OP chart. Will review OP records. As Ranked By This Provider Problem List: 1. Agitation 2. Depression with suicidal ideation 3. Essential hypertension 4. CAD (coronary artery disease) 5. GERD (gastroesophageal reflux disease) Miscellaneous Miscellaneous Documentation Attending Case Discussed With: Patricia UP,Tarik Primary Care Physician: Patient Has No Primary Care Dr Patient sees these Specialists NONE Level of Patient Care: [facility] Consults Needed: Consulting Physician: NONE Attending MD Review Statement Attending Statement Attending MD Statement: examined this patient, reviewed EMR data (avail), amended to note Attending Assessment/Plan: The patient was seen as anoted above.
--- NOTE | 2017-08-26 15:01 | SOCIAL WORKER PROG NOTE PSYCH ---
Social Work Progress Note Progress Note This blurb writer met with Prachi. She was agitated and irritable reporting that "nobody does anything to help." Patient stated that she would like to receive pain management and that she had been to providers in [place] and [place], but could not remember their names and did not want to return. Patient stated that she would also like access to her X-Ray's so she could review them herself. Patient stated that she has been seeing Margie at [facility] for individual therapy and really enjoys working with her. She stated that she does not currently have a psychiatrist. Patient stated that she smoked MJ "about 40 years ago" and denied any other substance use. Patient denied SI/HI/AH/VH. Patient stated that she is upset that lost her belongings and that her clothes are still upstairs. Patient started the conversation very agitated that we were "only talking" and nothing was being done. When completing COREY's, patient became agitated that "all you do is paperwork." Patient then reverted to stating that her therapist, Margie, and Braydon Mendieta ([facility]) are not helpful at all, however, later stated that she would like this blurb writer to contact them. Patient signed COREY's for [facility] and [facility]. This blurb writer spoke with Braydon Zazueta/M[facility]DA ([phone]). She stated that the patient's chief complaint is related to her pain, however, discussed how this impacts her emotional health as well. She stated that the [facility] and [facility]. She stated that the patient did not continue with appointments with Dr. Fajardo due to her alcohol use. Braydon felt that if the patient needed to agree to abstaining from alcohol use in order to engage in pain management she would likely do so without difficulty. She stated that a referral is in place from Dr. Fajardo to Dr. Sharp in [place] for pain management, however, the distance may be a barrier. This blurb writer contacted Mariella Feng with [facility]. She stated that she would be in contact later today with information. This blurb writer left a vm for Margie at [facility] ([phone]) at 1:46pm. Call was returned and vm was received. This blurb writer left a second vm. This blurb writer also spoke with Julia Murphy regarding patient's report of missing belongings. Julia went to the ED, but was unable to find any.
[2017-08-26 16:13] VITALS: BP 101/62
[2017-08-26 19:56] VITALS: BP 102/60
[2017-08-26 22:24] VITALS: BP 120/78
[2017-08-27 07:47] VITALS: BP 128/84
[2017-08-27 12:19] VITALS: BP 140/89
--- NOTE | 2017-08-27 15:03 | CP SOUTH PROGRESS NOTE PSYCH ---
Psych (Inpt) Progress Note Progress Note Include the following elements, when applicable: Involvement in the active treatment of the patient with behavioral observations of the patient and the patient's response to the treatment. Review of the ongoing treatment process in the context of the treatment plan. Indication of how multi-disciplinary staff members are carrying out the treatment plan. Plans for future interventions and recommendations for revision of the treatment plan. Liaison with other physicians/providers. Progress Note: Chart reviewed. Progress discussed with nursing staff. Interviewed patient this morning. Patient initially quite perseverative on "not being treated properly for pain", however when I showed her she is ordered for percocet she expressed she did not realize this and was satisfied. She was also appreciative of being shown her x-rays and the results. Became quite tearful discussing her inability to do art or write stories which are two things she loves due to skeletal pain. We discuss the importance of outpatient endocrinology (for bone health) and pain mgmt upon CPS discharge. She reports ongoing but vague thoughts of SI and demoralization about not being to live pain free. Vitals and labs reviewed. Findings are: vitals with mild htn ow/ wnl. no new labs. Mental status exam: elderly appearing woman ambulating with walker with clear skeletal deformities in upper spine. fair eye contact, frequestnly tearful. Speech wnl. Mood "really depressed" Affect constricted, mildly labile. TP was log/ayad, content with vague SI without plan, denies HI, denies percept disturbance. Cognition grossly intact. I/J fair. Assessment and plan: Remains quite depressed but significant improvement in behavior since yesterday. Does not appear to require a sitter and will d/c. REassurance re: availability of pain meds was helpful for her. Continue current management as per primary team.
[2017-08-27 15:54] VITALS: BP 131/85
[2017-08-27 19:55] VITALS: BP 120/78
[2017-08-28 08:14] VITALS: BP 134/78
--- NOTE | 2017-08-28 11:05 | CP SOUTH PROGRESS NOTE PSYCH ---
Psych (Inpt) Progress Note Progress Note Include the following elements, when applicable: Involvement in the active treatment of the patient with behavioral observations of the patient and the patient's response to the treatment. Review of the ongoing treatment process in the context of the treatment plan. Indication of how multi-disciplinary staff members are carrying out the treatment plan. Plans for future interventions and recommendations for revision of the treatment plan. Liaison with other physicians/providers. Progress Note: Chart reviewed. Progress discussed with nursing staff. Interviewed patient this morning. Remains highly emotionally labile, perseverative on slights from the "medical profession" and pain. Highly concerned about not being prescribed controlled substances upon discharge. Much of the content of this conversation is similar to yesterday. However, she did remain in good behavioral control. + wish though no thoughts of harming self on unit. Denies HI, denies AVH. Vitals and labs reviewed. Findings are: vitals with mild htn ow/ wnl. no new labs. Mental status exam: elderly appearing woman ambulating with walker with clear skeletal deformities in upper spine. fair eye contact, frequestnly tearful. Speech wnl. Mood "terrible!" Affect constricted, mildly labile, angry. TP was log/ayad, content with vague SI without plan, denies HI, denies percept disturbance. Cognition grossly intact. I/J limited Assessment and plan: Remains quite dysphoric and labile. Perseverative re: pain management. Given the repetitive nature of today's interview I do wonder whether there is neurocognitive deficit. Would suggest performance of at least a screening MOCA once becomes less labile. Continue current management as per primary team.
[2017-08-28 12:09] VITALS: BP 114/89
[2017-08-28 15:54] VITALS: BP 117/74
[2017-08-28 19:55] VITALS: BP 139/80
[2017-08-29 07:48] VITALS: BP 116/67
--- NOTE | 2017-08-29 07:54 | CP SOUTH PROGRESS NOTE PSYCH ---
Psych (Inpt) Progress Note Progress Note I reviewed Dr. Cornejo's notes from the weekend of August 27 and 2017. Treatment team (FISH HOUSE WORKER, RN, OTR/L & Activities Therapist, Psychiatrist) discussed the Pt.'s progress, treatment plan, and aftercare plans. Vital Signs Date Time Temp Pulse Resp B/P 08/29 0754 97.6 72 18 116/67 08/29 0753 97.6 72 18 116/67 08/29 0748 97.6 72 116/67 08/28 2158 97.6 73 18 139/80 08/28 1955 97.6 73 139/80 Mental status exam: Patient continues to report depressed mood and attributes all of that to her chronic pain. The patient seemed a little bit more respectful and pleasant today. She is still focused on pain of course. She was asking for more opiates and her request was declined. She was in good behavioral control. Occasional wishing though no thoughts of suicide. She denies HI, denies AVH. elderly appearing woman ambulating with walker fair eye contact, frequestnly tearful. Speech wnl. Mood "terrible!" Affect constricted, mildly labile, angry. TP was log/ayad, content with vague SI without plan, denies HI, denies percept disturbance. Assessment Remains quite dysphoric and labile. Perseverative re: pain management. plan: Increase duloxetine to 120 mg daily Increase gabapentin to 900 mg 4 times daily Continue other medications unchanged Sig/Lena Start time Last Medication Dose Route Stop Time Status Admin Acetaminophen 650 MG Q4P PRN 08/24 1715 AC 08/26 Al Hydroxide/Mg 30 ML Q4-6 PRN PRN 08/24 1715 AC Hydroxide PO Alendronate Sodium 70 MG QWED@0700 08/31 0700 AC Amlodipine Besylate 5 MG DAILY 08/24 0901 AC 08/29 Benztropine Mesylate 1 MG Q6P PRN 08/24 1730 AC 08/26 PO 0827 Buspirone HCl 10 MG TID 08/24 2100 AC 08/29 Duloxetine HCl 120 MG 0800 08/30 0800 AC PO 0754 Fluticasone 2 SPRAY DAILY 08/25 1325 AC 08/29 Propionate JOVANY 0754 Gabapentin 900 MG FOUR TIMES A DAY 08/29 1400 AC 08/29 PO 1437 PO 0753 Haloperidol 5 MG Q6P PRN 08/24 1730 AC 08/26 PO 0827 Lorazepam 1 MG Q6P PRN 08/24 1730 AC 08/28 PO 0519 Lorazepam 2 MG Q6P PRN 08/24 1730 AC 08/26 PO 0827 Magnesium Hydroxide 30 ML AT BEDTIME PRN 08/24 1730 AC PO Montelukast Sodium 10 MG AT BEDTIME 08/25 2100 08/28 PO 215 Omeprazole 40 MG DAILY AC 08/25 0700 AC 08/29 PO 0626 Oxycodone/ 2 TAB Q4P PRN 08/26 1045 AC 08/29 Acetaminophen PO 1439 Propranolol HCl 20 MG TID 08/24 2100 08/29 PO 1437 Trazodone HCl 100 MG AT BEDTIME NEED.. 08/24 1715 08/28 PO 215
[2017-08-29 12:21] VITALS: BP 116/70
--- NOTE | 2017-08-29 13:38 | SOCIAL WORKER PROG NOTE PSYCH ---
See Addendum Social Work Progress Note Progress Note This database report writer left vm with clinical for Ed's [phone] requesting ongoing authorization for inpatient stay. Ed's voicemail ended before the message was complete and this database report writer was unable to provide a call back number. When attempting to call back, the message indicated that Ed's voicemail was full and a message could not be left. A number for his cook room supervisor, Carolina, was available ([phone]) and this database report writer left a vm for Carolina requesting that this database report writer's call back number is provided to Ed.
[2017-08-29 15:56] VITALS: BP 113/72
--- NOTE | 2017-08-29 16:51 | SOCIAL WORKER PROG NOTE PSYCH ---
Social Work Progress Note Progress Note The services requested require additional review. You will be contacted regarding the status of this request if further information is needed. An authorization decision will be made within the required timeframes and details of that decision may be found under the member's authorization history. Member Name Member ID Member Subscriber Name Subscriber ID HOWARD PONCE [id number] 1945 HOWARD PONCE [id number] Pended Authorization # Client Authorization # Type of Request [id number] CONCURRENT Date of Admission/ Start of Services Requested From Submission Date 08/25/2017 08/29/2017 08/29/2017 Level of Service Type of Service Level of Care Type of Care INPATIENT/HLOC [facility] Reason Code P76 Provider Name & Address Provider ID Provider Alternate ID NPI # for Authorization MICHELLE LUA [id number] [address] [place] [id number] Message
[2017-08-29 19:35] VITALS: BP 129/85
[2017-08-30 07:57] VITALS: BP 129/83
[2017-08-30 12:19] VITALS: BP 128/79
--- NOTE | 2017-08-30 14:01 | CP SOUTH PROGRESS NOTE PSYCH ---
Psych (Inpt) Progress Note Progress Note Treatment team (TASHA, RN, OTR/L & Activities Therapist, Psychiatrist) discussed the Pt.'s progress, treatment plan, and aftercare plans. Vital Signs Vital Signs Date Time Temp Pulse Resp B/P B/P Pulse O2 O2 Flow FiO2 Mean Ox Delivery Rate 08/30 1548 79 119/71 08/30 1413 97.8 62 18 128/79 08/30 1219 62 128/79 08/30 0857 97.8 80 18 129/83 08/30 0857 97.8 80 18 129/83 08/30 0757 97.8 80 129/83 08/29 2218 78 129/85 08/29 1935 98.5 78 129/85 Mental status exam: Patient less depressed, more respectful and pleasant today. She is still focused on pain. She was in good behavioral control, occasional wishing though no thoughts of suicide. She denies HI, denies AVH. elderly appearing woman ambulating with walker fair eye contact, not tearful. Speech wnl. Affect constricted, coherent/no thought disorder denies HI, denies percept disturbance. Assessment 71-year-old single never with chronic pain and depression. improving plan: continue duloxetine 120 mg daily continue Gabapentin 900 mg 4 times daily Continue other medications unchanged Change percocet to oxycodone 15 mg Q 6 hours regular schedule Hydroxide PO Alendronate Sodium 70 MG QWED@0708/31 0700 AC Amlodipine Besylate 5 MG DAILY 08/24 0901 AC 08/29 Benztropine Mesylate 1 MG Q6P PRN 08/24 1730 AC 08/26 PO 0827 Buspirone HCl 10 MG TID 08/24 2100 AC 08/29 Duloxetine HCl 120 MG 0800 08/30 0800 AC PO 0754 Fluticasone 2 SPRAY DAILY 08/25 1325 AC 08/29 Propionate JOVANY 0754 Gabapentin 900 MG FOUR TIMES A DAY 08/29 1400 AC 08/29 PO 1437 PO 0753 Haloperidol 5 MG Q6P PRN 08/24 1730 AC 08/26 PO 0827 Lorazepam 1 MG Q6P PRN 08/24 1730 AC 08/28 PO 0519 Lorazepam 2 MG Q6P PRN 08/24 1730 AC 08/26 PO 0827 Magnesium Hydroxide 30 ML AT BEDTIME PRN 08/24 1730 AC PO Montelukast Sodium 10 MG AT BEDTIME 08/25 2100 AC 08/28 PO 2159 Omeprazole 40 MG DAILY AC 08/25 0700 AC 08/29 PO 0626 Oxycodone/ 2 TAB Q4P PRN 08/26 1045 AC 08/29 Acetaminophen PO 1439 Propranolol HCl 20 MG TID 08/24 2100 AC 08/29 PO 1437 Trazodone HCl 100 MG AT BEDTIME NEED.. 08/24 1715 AC 08/28 PO 215 DICTATED BY: Leo Saenz MD DATE/TIME DICTATED:08/29/17 / 0753 CULTURE ROOM WORKER:PERFECTO
[2017-08-30 15:48] VITALS: BP 119/71
--- NOTE | 2017-08-30 16:01 | SOCIAL WORKER PROG NOTE PSYCH ---
Social Work Progress Note Progress Note SW met with pt to have her re-sign CCT COREY as it . Pt was agreeable to being a part of the CCT. She thinks it will be helpful. Prachi shared that she is in pain but it's managable. Pt states the pain in her back that radiates around the under, under her breast and into her chest is new and she hasn't gotten used to it yet. This pain frightens her. Pt states that she is going to get an appointment with Dr. Agee for pain management. She states she is working with FRANCISCO JAVIER Iyer to identify a psychiatric med provider. Per Shireen, patient is agreeable to OPS. Pt states in terms of discharge planning she needs: 1. Psych Med Provider 2. Manager Underwriting 3. PCP 4. Acupunture Patient's mood has improved since initial assessment in ED and Tuesday when this SW saw pt last. Pt is concerned she has an outstanding warrant as she recieved a voicemail about it. She reports she called the police and they told her she does not have a warrant. We discussed how there are a lot of prank calls like that lately in the news. Patient was also challenged when she stated that people do not help here at [facility]. Identified this FRANCISCO JAVIER, Preston ([facility]), Shireen Ramos ([facility] SW) and Dr. Antunez as staff that care about her and are trying to help her. Pt agreed with this statement smiling.
--- NOTE | 2017-08-30 17:29 | SOCIAL WORKER PROG NOTE PSYCH ---
Social Work Progress Note Progress Note This commercial insurance underwriter met with patient. She stated that her mood is impacted by her pain and described her pain at a 10/10. She denied SI/HI/AH/VH. Patient is agreeable to an appointment with Dr. Sharp, pain management. This commercial insurance underwriter has been informed that a referral was sent to Dr. Sharp. Patient stated that she would also like to continue with in home services through [facility]. She did not have a contact number and this commercial insurance underwriter is investigating contact information. This commercial insurance underwriter left a vm for Katiasherinea at [facility] for individual therapy in interest of scheduling an appointment. This commercial insurance underwriter contacted OPS in interest of scheduling an intake and med eval and was informed that the patient is on their do not schedule list. This commercial insurance underwriter will discuss with team. Finally, patient was informed that primary care services are being explored. Mariella, program clinician, suggested a referral to BELINDA, Dr. Moss's office. A second vm was left for Soffia at [place] at 5:28pm requesting an appointment date/time.
[2017-08-30 19:49] VITALS: BP 118/50
[2017-08-31 05:19] VITALS: BP 131/78
[2017-08-31 07:42] VITALS: BP 119/93
[2017-08-31 12:38] VITALS: BP 112/66
[2017-08-31 15:59] VITALS: BP 107/68
--- NOTE | 2017-08-31 16:08 | CP SOUTH PROGRESS NOTE PSYCH ---
Psych (Inpt) Progress Note Progress Note Treatment team (TASHA, RN, OTR/L & Activities Therapist, Psychiatrist) discussed the Pt.'s progress, treatment plan, and aftercare plans. Mental status exam: Patient was alert and oriented to time, place, and person. She was less depressed, more respectful and pleasant today. She was less focused on pain. She was in good behavioral control, occasional wishing though no thoughts of suicide. She denied thinking of violence or homicide She denied hallucinations ambulating with walker, good eye contact, brighter affect Normal speech, coherent/no thought disorder Assessment Prachi Bruno is a 71-year-old single never with chronic pain and depression. improving/no more thoughts of suicide plan: Reduce Gabapentin to 900 mg TID reduce Propranolol Reduce Buspar D/C Singulair Reduce omeprazole continue duloxetine 120 mg daily oxycodone 15 mg Q 6 hours regular schedule Patient less depressed, more respectful and pleasant today. She is still focused on pain. She was in good behavioral control, occasional wishing though no thoughts of suicide. She denies HI, denies AVH. elderly appearing woman ambulating with walker fair eye contact, not tearful. Speech wnl. Affect constricted, coherent/no thought disorder denies HI, denies percept disturbance. Assessment 71-year-old single never with chronic pain and depression. improving plan: continue duloxetine 120 mg daily continue Gabapentin 900 mg 4 times daily Continue other medications unchanged Change percocet to oxycodone 15 mg Q 6 hours regular schedule
--- NOTE | 2017-08-31 17:39 | SOCIAL WORKER PROG NOTE PSYCH ---
See Addendum Social Work Progress Note Progress Note This public relations writer contacted Dr. Sharp's office to schedule an appointment and was informed that they had not received a referral. This public relations writer spoke with Eliza at Dr. Hernandez's office today at 3:04pm who stated that she would send the referral. This public relations writer spoke with Roberto Carlos at [facility]. She provided the following appointments: 09/02/17 at 11:30am and 09/05/17 at 11am, requesting to be informed if any or both appointments need to be changed or cancelled. She stated that she will continue meeting wiht the patient twice weekly. Roberto Carlos was informed of referrals/appointments that are being made. This public relations writer met with patient. She described her mood as "good" and pain at a . She denied SI/HI/AH/VH. Patient was informed of progress with the discharge plan (referrals made and appointments scheduled thus far). She was also informed that this public relations writer spoke with Vamshi at [place] [facility] who confirmed that she can use [facility] and Misti at [facility] (at 3:23pm) who confirmed that she can utilize [facility] to Dr. Sharp's as his office does not exceed mileage limitations. Patient was shown a list of psychiatric providers who are in her network (from the [facility] website) and requested a referral to Dr. Castillo. This public relations writer faxed demographics, diagnostic assessment, psychiatric admission and medication list to [phone] at 3:48pm today).
[2017-08-31 19:54] VITALS: BP 104/70
[2017-09-01 07:38] VITALS: BP 140/85
--- NOTE | 2017-09-01 08:24 | CP SOUTH PROGRESS NOTE PSYCH ---
Psych (Inpt) Progress Note Progress Note Treatment team (TASHA, RN, OTR/L & Activities Therapist, Psychiatrist) discussed the Pt.'s progress, treatment plan, and aftercare plans. Vital Signs Date Time Temp Pulse Resp B/P B/P Pulse O2 FiO2 09/01 0739 82 140/85 09/01 0739 82 140/85 09/01 0738 97.4 82 140/85 08/31 2245 66 104/70 08/31 1954 98.2 66 104/70 08/31 1559 63 107/68 Mental status exam: The patient was ambulating with walker. She showed good eye contact, brighter affect, and normal speech, she was coherent/no thought disorder Patient was alert and oriented to time, place, and person. She she reported feeling some improvement in her mood, was less depressed, and she denies feeling hopeless or worthless or wishing today. She denied thoughts of suicide. She was respectful and pleasant today. She was less focused on pain. She was in good behavioral control, occasional wishing though no thoughts of suicide. She denied thinking of violence or homicide. She denied hallucinations. Assessment: Prachi Bruno is a 71-year-old single never with chronic pain and depression. improving/no more thoughts of suicide Plan: D/C PRN Motrin Diclofenac sodium 75 mg BID Increase Oxycodone to 20 mg Q 6 hours regular schedule Continue Gabapentin 900 mg TID continue duloxetine 120 mg daily continue duloxetine 120 mg daily oxycodone 15 mg Q 6 hours regular schedule
[2017-09-01 12:14] VITALS: BP 114/64
--- NOTE | 2017-09-01 13:49 | SOCIAL WORKER PROG NOTE PSYCH ---
Social Work Progress Note Progress Note HOWARD MYahaira PONCE [id number] 1945 HOWARD MYahaira PONCE [id number] Pended Authorization # Client Authorization # Type of Request [id number] CONCURRENT Date of Admission/ Start of Services Requested From Submission Date 08/25/2017 09/01/2017 09/01/2017
[2017-09-01 16:27] VITALS: BP 115/69
--- NOTE | 2017-09-01 18:28 | SOCIAL WORKER PROG NOTE PSYCH ---
Social Work Progress Note Progress Note This gag writer spoke phani Rubi and Awa Barnes at [facility]. The shared that [facility] offers primary care, in home and specialize with complex conditions. Patient's insurance is in network and the program is voluntary. Patient will be provided with a primary care provider, a psychiatrist and pain management services. A geriatric social worker will also be assigned, however, patient may continue with her community therapist (Roberto Carlos at [facility]). Patient may keep the appointment with Dr. Sharp (09/30/17) and it cane be determined if it is still needed as the appointment draws closer. They explained that they often transition patients off of opiate pain medications and find alternatives depending on each individual situation. Patient was agreeable to considering this and accepted a 2pm time today to meet with Awa Barnes RN. This gag writer met with patient. She appeared very excited and enthusiastic about [facility] and meeting with them today. She denied SI/HI/AH/VH. This gag writer initially spoke with Miss Sterling with [facility]. She stated that the patient receives services 7 days per week consisting of light housework and transportation to appointments within a 5 mile radius. The call was disconnected and a return call was made from Arthur and "Reggie", also with [facility] ([phone]). They confirmed that the patient receives care 7 days per week (Tue- 2 hours; Tue 4 hours; Sat/Sun 2hours). Patient will be able to resume services the day after discharge. This gag writer spoke with Arthur and inquired about the possiblity for the patient to receive transportation from the hospital to her individual appointment with Roberto Carlos at [place] tomorrow at 11: 30am. Arthur stated that he would reach out to the homemaker/coverstitch machine operator and call back with the answer. Following patient's meeting with Awa Barnes, Mariella Montes and this gag writer met with Awa. An intake appointment at the patients home was made for 09/05/17, at 1:30pm. Patient will be provided with primary care, psychiatry and pain management appointments. Awa was informed that the patient has had difficulties in the past with providers resulting in termination. Upon hearing about Carlos, patient responded, "I have complex conditions." This gag writer will inform Awa when the discharge date is decided upon. This gag writer left clinical via vm for Lorna/Jeffrey at [phone] requesting an addition inpatient day as the patient is scheduled to discharge tomorrow. Lorna returned the call with authorization and next review/discharge clinical is due on 09/02/17. This gag writer left vm for Roberto Carlos at [facility] confirming the individual appointment for tomorrow at 11:30am. She was requested to return the call to discuss the discharge plan as vm message was general.
[2017-09-01 19:37] VITALS: BP 113/78
[2017-09-02 07:38] VITALS: BP 120/72
[2017-09-02 10:40] VITALS: BP 120/72
[2017-09-02] MEDS ORDERED: TRAZODONE HCL100 M1 PO (11:08)
[2017-09-02] MEDS ORDERED: FLUTICASONE PRO16 GM NAS (11:08)
[2017-09-02] MEDS ORDERED: DULOXETINE HCL60 MG PO (11:08)
[2017-09-02] MEDS ORDERED: GABAPENTIN300 M2 PO (11:08)
[2017-09-02] MEDS ORDERED: AMLODIPINE BESYL5 M1 PO (11:08)
[2017-09-02] MEDS ORDERED: OXYCODONE HCL10 M2 PO (11:08)
[2017-09-02] MEDS ORDERED: DICLOFENAC SODI75 M2 PO (11:08)
[2017-09-02] MEDS ORDERED: ALENDRONATE SOD70 M2 PO (11:08)
--- NOTE | 2017-09-02 11:11 | Patient Discharge Instructions ---
Psych Discharge Inst General Discharge Information Reason for Admission: threats of suicide Psy Discharge Primary Diag+ Unspecified Depressive Di Psy Discharge Secondary Diag+ Other Substance Use Disor Summary Tests/Major Procedures No significant abnormalities Studies Pending at DC: None Patient Instructions Contact Information Your Psychiat[facility] on [facility] was Leo Saenz MD * If you are experiencing an emergency related to this hospitalization, please call [phone] to contact the treating psychiatrist or the psychiatrist-on- call. * To Request a copy of your medical records, please contact the Medical Records Department at [phone]. * To request results of studies pending at the time of discharge, please call [phone]. * Continue your Medications until directed to stop by your Healthcare provider. General Medication Information Please continue to take your new medications and your continued home medications , unless otherwise indicated on your discharge medication list, or unless directed by your MD or UNIX CONSULTANT to stop them. Special Instructions Diet Regular Activity As Tolerated - Tobacco Use Treatment Offered Post DC Medications Offered: Not Applicable Post DC Tobacco Treatment Plan: Not Applicable - EtOH/Drug Use D/O Treatment Offered Post DC Medications Offered: Script Given-See Med List Post DC EtOH/SubAbuse [place] Plan: NA-No EtOH/Drug Use D/O Advance Directives Does the Patient have Medical Advance Directives No/Refused further info Does Pt have Psychiatric Advance Directives? No/Refused further info Does Patient have a Designated Surrogate Decision Maker: No Information About Psychiatric Advance Directives Provided? Refused Discharge Plan Post Hospital Treatment Plan: See Referrals
--- NOTE | 2017-09-02 12:52 | DISCHARGE SUMMARY REPORT-PSYCH ---
Visit Information Visit Dates/Diagnosis' Admission Date: 08/25/17 Discharge Date: 09/02/17 Reason for Admission: threats of suicide Psy Discharge Primary Diag: Unspecified Depressive Di Psy Discharge Secondary Diag: Other Substance Use Disor Hospital Course Significant Lab Findings: Lab Acetaminophen < 10.0 ug/mL L 03/28/16 0955 Amphetamines Screen < 100 NG/ML 08/24/17 0741 Barbiturate Screen < 60 NG/ML 08/24/17 0741 Carbamazepine 10.0 ug/mL 01/05/16 0550 Methadone Screen 66 NG/ML 08/24/17 0741 U Benzodiazepines Scrn < 85 NG/ML 08/24/17 0741 Ur Phencyclidine Scrn 6.70 NG/ML 08/24/17 0741 Urine Cannabis Screen > 80.00 NG/ML H 08/24/17 0741 Urine Cocaine Screen < 50 NG/ML 08/24/17 0741 Urine Opiates Screen 111 NG/ML 08/24/17 0741 Course Complications: The patient did not have any complications while she was on the inpatient psychiatric unit. Consultations: Patient had a history and physical examination by the laryngologist while she was on the inpatient psychiatric unit. Medical History Neurological: CVA (with L-sided paraparesis), delerium (in 2005--too much opioid rx), dizziness (in past on Tegretol, 3-400mg), R/O shaking/tremulousness on idiopathic basis EENT: NONE Cardiovascular: CAD, hypertension, hyperlipidemia, myocardial infarction ( possible old M.I.(on EKG)) Respiratory: NONE, hx of aspirations during drug excess and/or OD Gastrointestinal: NONE Hepatic: HEP C Renal: NONE Musculoskeletal: chronic back pain Psychiatric: anxiety, bipolar disease (R/O bipolar spectrum disorder), depression, IV drug abuse (remote hx heroin abuse), opioid dependence, SUICIDAL IDEATION benzo. 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 BROTHER, ; Cause: Hepatitis. Relation not specified for: Family hx-stroke FH: heart disease Psychosocial History Where do you live? Home Services at Home: None Primary Language: Telugu ETOH Use: occasional use Illicit Drug Use: marijuana Functional Ability ADLs Independent: dressing, eating, toileting, bathing. Ambulation: independent IADLs Needs Assist: shopping, housework, food prep, transportation. Employment History Employment Disability Review of Systems Review of Systems Constitutional: Denies: no symptoms. EENTM: Denies: no symptoms. Cardiovascular: Denies: no symptoms. Respiratory: Denies: no symptoms. GI: Denies: no symptoms. Genitourinary: Denies: no symptoms. Musculoskeletal: Reports: back pain (CHRONIC). Skin: Denies: no symptoms. Neurological/Psychological: Reports: anxiety, depressed, emotional problems. Hematologic/Endocrine: Denies: no symptoms. Immunologic/Allergic: Denies: no symptoms. Exam & Diagnostic Data Last 24 Hrs of Vital Signs/I&O Vital Signs Date Time Temp Pulse Resp B/P B/P Pulse O2 O2 Flow FiO2 Mean Ox Delivery Rate 08/26 1247 83 130/87 08/26 0759 97.4 92 146/78 08/26 0538 104 146/85 08/25 1923 96.7 98 151/92 08/25 1810 98.6 123 18 168/90 94 Room Air Room Air 08/25 1700 98.4 108 20 162/88 95 Intake & Output 08/26 1600 08/26 0800 08/26 0000 Intake Total Output Total Balance Patient 150 lb Weight Physical Exam General Appearance Oriented X3, Cooperative (SEDATED), No Acute Distress Skin No Rashes, No Breakdown HEENT Atraumatic, PERRLA, EOMI, Mucous Membr. moist/pink (DRY MUCOSA) Neck Supple, No JVD, No thryomegaly, +2 Carotid Pulse wo Bruit, No LAD Cardiovascular Regular Rate, Normal S1, Normal S2, No Murmurs Lungs Clear to Auscultation, Normal Air Movement Abdomen Normal Bowel Sounds, Soft, No Tenderness, No Hepatospenomegaly, No Masses Neurological Exam Findings: Normal Speech, Strength at 5/5 X4 Ext, Normal Tone, Sensation Intact, Cranial Nerves 3-12 NL, Reflexes 2+ Cranial Nerves II through XII: INTACT Extremities No Clubbing, No Cyanosis, No Edema, Normal Pulses, No Tenderness/ Swelling Vascular Normal Pulses, Pulses Symmetrical Last 24 Hrs of Labs/Michel: Laboratory Tests 08/24/17 0741: Urine Opiates Screen 111, Methadone Screen 66, Barbiturate Screen < 60, Ur Phencyclidine Scrn 6.70, Amphetamines Screen < 100, U Benzodiazepines Scrn < 85, Urine Cocaine Screen < 50, Urine Cannabis Screen > 80.00 H 08/24/17 0706: [Image 0] Anion Gap 14, Estimated GFR > 60, BUN/Creatinine Ratio 20.0, Glucose 130 H, Calcium 10.1, Total Bilirubin 0.7, AST 37 H, ALT 29, Alkaline Phosphatase 58, Troponin I < 0.01, Total Protein 8.2, Albumin 4.4, Globulin 3.8, Albumin/ Globulin Ratio 1.2, TSH 2.200, CBC w Diff NO MAN DIFF REQ, RBC 4.57, MCV 96.2, MCH 32.5 H, MCHC 33.8, RDW 13.6, MPV 7.7, Gran % 51.4, Lymphocytes % 35.3, Monocytes % 8.8, Eosinophils % 4.1, Basophils % 0.4, Absolute Granulocytes 4.4, Absolute Lymphocytes 3.0, Absolute Monocytes 0.7 H, Absolute Eosinophils 0.4, Absolute Basophils 0, Serum Alcohol < 10.0 08/24/17 0654: TSH Cancelled 08/24/17 0650: Troponin I Cancelled Assessment/Plan Assessment: Impression/Plan: #Depression/Suicidal Ideation- patient frustrated over difficulty obtaining her medications. Has been on chronic psych and pain medications. Saw Dr. Fajardo who stated he could not prescribe. Has had various other PCP's over the years. Plan: Admitted to [facility] for evaluation of depression. When discharged will need to arrange OP follow-up for pain management, etc. Will also need PCP. #GERD- on Omeprazole. Plan: Continue Omeprazole. #Chronic Back Pain- on Percocet/Cymbalta. Plan: Percocet/Cymbalta ordered. #CAD/HTN- BP good. Unclear why she is not on usual meds (ASA, statin). Plan: Continue Amlodipine, Propranolol (for both tremors and BP)- follow BP. Will check OP chart. Will review OP records. As Ranked By This Provider Problem List: 1. Agitation 2. Depression with suicidal ideation 3. Essential hypertension 4. CAD (coronary artery disease) 5. GERD (gastroesophageal reflux disease) Miscellaneous Miscellaneous Documentation Attending Case Discussed With: Tarik Gomez MD Allergies: Coded Allergies: No Known Drug Allergies (UNKNOWN 11/08/16) codeine (Mild, GI UPSET 01/27/16) Hospital Course/TX Response: 09/02/2017: Mental status exam: The patient was alert and oriented to time, place, and person. She showed good eye contact, brighter affect, and normal speech, she was coherent/no thought disorder Patient reported improvement in her mood, was less depressed, and she denies feeling hopeless or worthless or wishing today. She denied thoughts of suicide. She was less focused on pain. She was in good behavioral control, occasional wishing though no thoughts of suicide. She denied thinking of violence or homicide. She denied hallucinations. Assessment: Prachi Bruno is a 71-year-old single never with chronic pain and depression. improving/no more thoughts of suicide Plan: D/C Home see social work notes as well as discharge summary for details on the aftercare plan. Discharge HBIPS - Tobacco Use Treatment Offered Post DC Medications Offered: Not Applicable Post DC Tobacco Treatment Plan: Not Applicable - EtOH/Drug Use D/O Treatment Offered Post DC Medications Offered: Med Not Indicated for D/O Post DC EtOH/SubAbuse TX Plan: Refused Post DC Tx Pgm Metabolic Screening - Screen if on a Neuroleptic Medication - Metabolic screening should include: - Blood Pressure, BMI, Glucose or Hgb A1c, & a - Lipid profile from within the past 365 days. Metabolic Screening Not Applicable, patient not on a neuroleptic. Discharge Instructions General Discharge Information Discharge Diet Regular Discharge Activity As Tolerated Referrals Ordered Referrals Provider Referral 09/05/17 For Providers: [[facility]] [address] [phone] Patient will have an intake appointment on 09/05/17, at 1:30 in her home. Follow up appointments with the primary care provider, psychiatrist and pain management will be scheduled during the intake appointment. These appointments will all be through [facility]. Provider Referral 09/02/17 For Providers: [Roberto Carlos Lazar LCSW] For Groups: [[facility]] Roberto Carlos Lazar LCSW [facility] [address] [place] [address], [address] [place], [place] [phone] Individual therapy appointment: 09/02/17, 11:30am Individual therapy appointment: 09/05/17, 11:00am Provider Referral 09/30/17 For Providers: [Dr. Pauline Sharp] Dr. 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 Patient will receive services 7 days per week. Provider Referral For Providers: [Braydon Mendieta FRANCISCO JAVIER] For Groups: [[facility]] Braydon Mendieta FRANCISCO JAVIER [facility] [phone] Patient will follow up with Braydon upon discharge to schedule an appointment. [facility] 09/20/[address] [place] [address] [id number] [facility] [address] [place], [place] [phone] Appointment: 09/20/17, at 10:20am with Dr. Shane Dodge MD Prescriptions Stop taking the following medications: Omeprazole (Omeprazole) 40 MG CAPSULE. ORAL DAILY Qty = 30 Duloxetine HCl (Duloxetine HCl) 30 MG CAPSULE. ORAL DAILY Qty = 60 Propranolol HCl (Propranolol HCl) 20 MG TABLET ORAL 0800,1400,2200 Qty = 42 Buspirone HCl (Buspirone HCl) 10 MG TABLET ORAL 0800,1400,2200 Qty = 42 Duloxetine Hydrochloride (Cymbalta) 30 MG CAPSULE.DR ORAL DAILY Qty = 90 Oxycodone HCl/Acetaminophen (Percocet 5-325 MG Tablet) 5 MG-325 MG TABLET ORAL EVERY SIX HOURS NEEDED as needed for PAIN Qty = 16 Oxycodone HCl/Acetaminophen (Percocet 5-325 MG Tablet) 5 MG-325 MG TABLET ORAL EVERY SIX HOURS NEEDED as needed for pain Qty = 10 Trazodone HCl (Trazodone HCl) 50 MG TABLET ORAL Every night Qty = 12 Continue taking these medications: Amlodipine Besylate (Amlodipine Besylate) 5 MG TABLET 5 Milligram ORAL DAILY Qty = 1 Comments: Last Taken:09/02/17 Time:11AM This prescription has been renewed Trazodone HCl (Trazodone HCl) 100 MG TABLET 100 Milligram ORAL AT BEDTIME Qty = 14 Comments: Last Taken:09/01/17 Time:11PM This prescription has been renewed Alendronate Sodium (Alendronate Sodium) 70 MG TABLET 1 Tablet ORAL EVERY TUESDAY Qty = 1 Instructions: in the morning, at least 30 minutes before the first food, beverage, or medication of the day Comments: Last Taken:08/31/17 Time:7AM This prescription has been renewed Start taking the following new medications: Diclofenac Sodium (Diclofenac Sodium) 75 MG TABLET.DR 75 Milligram ORAL TWICE DAILY Qty = 30 No Refills Comments: Last Taken:09/02/17 Time:11AM Oxycodone HCl (Oxycodone HCl) 10 MG TABLET 20 Milligram ORAL EVERY SIX HOURS Qty = 120 No Refills Comments: Last Taken:09/02/17 Time:7AM Gabapentin (Gabapentin) 300 MG CAPSULE 900 Milligram ORAL THREE TIMES DAILY Qty = 120 No Refills Comments: Last Taken:09/02/17 Time:11AM Duloxetine HCl (Duloxetine HCl) 60 MG CAPSULE.DR 120 Milligram ORAL DAILY @8 AM Qty = 30 No Refills Comments: Last Taken:09/02/17 Time:11AM Fluticasone Propionate (Fluticasone Propionate) 50 MCG/ACTUATION SPRAY.SUSP 2 [place] In the nose DAILY Qty = 1 No Refills Comments: Last Taken:09/02/17 Time:11AM Studies Pending at Discharge None
--- NOTE | 2017-09-02 18:19 | SOCIAL WORKER PROG NOTE PSYCH ---
Social Work Progress Note Progress Note This contract technical writer met with patient. Patient was informed that, per Arthur at [facility], she will be provided with transportation from to [place] for her individual therapy session today at 11:30am. Patient was also reminded that, as discussed previously, she would be able to utilize [employer] for transportation. Patient described her mood as "good" and appeared very hopeful about starting treatment with [facility]. She stated, "I feel better than I've felt in a while. " She identified coping skills that she can utilize, which she finds effective, specifically painting and writing. She identified a safety plan to return to the hospital and/or utilize crisis numbers and warm lines which she accepted upon discharge. The following appointments/referrals were reviewed with and accepted by the patient: -[facility] Patient will have an intake appointment on 09/05/17, at 1:30 in her home. Follow up appointments with the primary care provider, psychiatrist and pain management will be scheduled during the intake appointment. These appointments will all be through [facility]. -Roberto Carlos Lazar LCSW Individual therapy appointment: 09/02/17, 11:30am Individual therapy appointment: 09/05/17, 11:00am -Dr. Pauline Sharp Appointment: 09/30/17, 1:00pm -[facility] homemaker/personnel monitor services will resume today, 09/02/17. Patient will receive services 7 days per week. -Braydon Mendieta, [facility] Patient will follow up with Braydon upon discharge to schedule an appointment. -[facility] Appointment: 09/20/17, at 10:20am with Dr. Shane Dodge MD This contract technical writer spoke with Mr. Mcghee at [facility], who requested that the patient health summary is faxed to them. This contract technical writer left for Roberto Carlos at [place] [facility] confirming that patient will attend the appointment today. A call back number for this contract technical writer was also provided in the event that Roberto Carlos would like to discuss further, including discharge plans. This contract technical writer spoke with Awa Barnes RN with [facility], confirming that the patient is discharging today and that they will visit her on Tuesday for the intake assessment. This contract technical writer spoke with Claudette at Dr. Sharp's office. She requested that the patient's History and Physical as well as medication list were faxed to them. These were included with the patient health summary. Faxed Referral(s) 1 Referred To: [place] [facility] Documents sent: Health Summary Faxed to: Roberto Carlos Lazar LCSW Fax #: [phone] Faxed by: David Ramos [facility] Date faxed: 09/02/17 Time Faxed: [phone] Faxed Referral(s) 2 Referred To: [facility] Transition of Care Documents sent: Health Summary Faxed to: [facility] Fax #: [phone] Faxed by: David Ramos [facility] Date faxed: 09/02/17 Time Faxed: [phone] Faxed Referral(s) 3 Referred To: [facility] Transition of Care Documents sent: Health Summary Faxed to: cayden Cooper Fax #: [phone] Faxed by: David Ramos [facility] Date faxed: 09/02/17 Time Faxed: [phone] Comment: fax # provided by Lory Villalobos world renowned chef and restaurant owner Faxed Referral(s) 4 Referred To: [facility] Transition of Care Documents sent: Health Summary Faxed to: Dr. Shane Dodge, [facility] Fax #: [phone] Faxed by: David Ramos [employer] Date faxed: 09/02/17 Time Faxed: [phone] Faxed Referral(s) 5 Referred To: Dr. Sharp Transition of Care Documents sent: Health Summary Faxed to: Dr. Sharp, attn: staff Fax #: [phone] Faxed by: David Ramos [employer] Date faxed: 09/02/17 Time Faxed: [phone] Comment: also included - the History and Physical
== END 2017-09-02 12:18 | DRG 881 ==
LOC: ERH 06:38 → ERHI 08-25 13:19 → CP SOUTH 08-25 13:19 → ENTRNSPT 08-25 18:54 → EDTRNSPTSTS 08-25 18:59 → CP SOUTH 08-25 19:09 → CMPTRNSPT 08-25 19:13 → CP SOUTH 08-26 17:21
PROVIDERS: Pediatrics
DX: F32.9 Major depressive disorder, single episode, unspecified (principal); F19.90 Other psychoactive substance use, unspecified, uncomplicated
CPT/HCPCS: 71046; 72050; 72070; 80307; 93005; 93010; G0463; G0480; J1630